=== PATIENT | female | born 1985 | race Caucasian/White ===

== ENCOUNTER → 2016-10-03 | Outpatient (CLI) | payer BC | LOC: LAB 10:15 | DX: A49.1 Streptococcal infection, unspecified site (principal) ==

== ENCOUNTER 2017-02-09 08:58 | Emergency (ER) | payer OTHER ==
[~2017-02-09] VITALS: Ht 172.7 cm; Wt 79.4 kg
[2017-02-09] MEDS ORDERED: ZITHROMAX Z PA250 MG PO (09:27)
--- NOTE | 2017-02-09 09:28 | Urgent Treatment Center Report ---
History of Present Issue Date/Time Seen by Provider 02/09/17 0917 Visit Reason Pt arrived:Walked Presenting Problem:PT C/O RASH ON THE LEFT LEG FOR THE PAST 3 DAYS Location if Accident: Onset of symptoms date/time:/ or onset unknown for:MEDICAL HX UNKNOWN Have you (or family members/close friends) recently traveled outside the [place]? N If Yes, where/when: Have you had exposure to infectious disease within the past month? TB? Other? Specify: Patient state that she started having a rash on her legs a couple of days ago that has continued to spread State that it looks like poison yani but she is not sure State that she also is having some nasal congestion and scratchy throat state that she is blowing out yellowish green ALLERGIES Coded Allergies: levofloxacin (From [facility]) (01/02/17) Home Medications Reported Medications No Known Home Medications History Medical History General CAD? No Angina: No VT: No Hypertension? No Hyperlipidemia? No CHF? No DVT? No PE? No COPD? No Asthma? No Anemia? No GERD? No Gastric ulcers? No GI Bleed? No Hernia? No Thyroid Problems? No Hypothyroidism? No CVA? No Seizures? No Diabetes? No Renal Insuffiency? No UTI? No Stones? No BPH? No GB Disease: Yes Nephritic Syndrome? No Asplenia? No Hepatitis? No Sickle Cell Disease? No Arthritis? No Migraines? No Cataracts? No Glaucoma? No MRSA? No HIV? No TB? No Anxiety? No Depression? No Cancer? No Immunization HX DT/Tetanus Unknown Flu Refused Pneumonia Never Had Surgical Hx Previous Surgery?Y REMOVAL OF COLON POLYPS T&A SEPTOPLASTY/TURB REDUCTIO REMOVAL LUMP LEFT BREAST GALLBLADDER Family History Family HX Diabetes No CAD No Hypertension No Hyperlipidemia No Cancer Yes TB No Social History Smoking Hx Smoker: Never Smoker Tobacco: No Alcohol Alcohol: No Review of Systems All Other Systems Reviewed and Negative ENT nose pain, nose discharge, nose congestion. Respiratory cough Physical Exam Vital Signs Vital Signs Date Time Temp Pulse Resp B/P Pulse O2 O2 Flow FiO2 Ox Delivery Rate 02/09 0913 97.9 97 16 120/87 98 General Appearance normal appearance, WD/WN, no apparent distress Ear, Nose, Throat sinus pain/drainage, nasal congestion Respiratory Status Yes: trachea midline, chest symmetrical, non tender chest. No: respiratory distress. 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 No Results/Orders Current Medication Orders Sig/Emy Start time Last Medication Dose Route Stop Time Status Admin Methylprednisolone 125 MG ONCE ONE 02/09 930 AC Sodium Succinate IM 02/09 931 Methylprednisolone 0 .STK-MED ONE 02/10 924 DC Sodium Succinate .ROUTE Departure Departure Time of Disposition 923 Disposition DC Home or Self Care(routine) Clinical Impression Primary Impression: Poison yani dermatitis Secondary Impressions: Upper respiratory infection Qualifiers: URI type: unspecified URI Qualified Code: J06.9 - Acute upper respiratory infection, unspecified Condition STABLE Patient Instructions DI for Nasal Congestion, DI for Poison Yani Allergy, DI for Sinusitis Additional Instructions Start antibiotic. It may take 2-3 days to notice much improvement so be sure to use conservative measures as discussed for symptoms Flonase 2 spray in each nostril daily to help with nasal congestion, sinus an ear pressure/inflammation Lots of Fluids Sleep elevated Humidifer/vaporizer Calomine lotion, hydrocortisone cream and or aveeno oatmeal baths will help to dry up rash Do not scratch Discharge Counseling Counseled pt/family regarding diagnosis, medications/RX, home care, follow up needs Prescriptions Current Visit Scripts Azithromycin (Zithromycin (Z-EUN) 250MG Tab) 250 MG PO DAILY #6 TAB TAKE TWO (2) TABLETS ON DAY 1, THEN ONE (1) TABLET DAY #2 THRU #5 at 0928
[2017-02-09 09:44] VITALS: BP 120/87
== END 2017-02-09 09:44 | disposition home or self-care (01) ==
LOC: UTC 08:58
DX: L23.7 Allergic contact dermatitis due to plants, except food (principal); Z88.1 Allergy status to other antibiotic agents; J06.9 Acute upper respiratory infection, unspecified

== ENCOUNTER 2017-03-25 14:51 | Emergency (ER) | payer OTHER ==
[~2017-03-25] VITALS: Ht 175.3 cm; Wt 81.6 kg
[~2017-03-25 14:51] MED LIST: ZITHROMAX Z PA250 MG PO
--- NOTE | 2017-03-25 15:50 | Urgent Treatment Center Report ---
History of Present Issue Date/Time Seen by Provider 03/25/17 1520 Visit Reason Pt arrived:Walked Presenting Problem:PT STATES SHE HAD A ROOT CANAL PERFORMED THIS PAST WED AND HAS BEEN HAVING PAIN AND ILLNESS SINCE. PT C/O DIZZINESS, NAUSEA, WEAKNESS, AND CHILLS Location if Accident: Onset of symptoms date/time:/ or onset unknown for:MEDICAL HX UNKNOWN Have you (or family members/close friends) recently traveled outside the [place]? N If Yes, where/when: Have you had exposure to infectious disease within the past month? TB? Other? Specify: ALLERGIES Coded Allergies: levofloxacin (From [facility]) (01/02/17) Home Medications Active Scripts Azithromycin (Zithromycin (Z-EUN) 250MG Tab) 250 MG PO DAILY #6 TAB Prov: 02/09/17 History Medical History General CAD? No Angina: No OK: No Hypertension? No Hyperlipidemia? No CHF? No DVT? No PE? No COPD? No Asthma? No Anemia? No GERD? No Gastric ulcers? No GI Bleed? No Hernia? No Thyroid Problems? No Hypothyroidism? No CVA? No Seizures? No Diabetes? No Renal Insuffiency? No UTI? No Stones? No BPH? No GB Disease: Yes Nephritic Syndrome? No Asplenia? No Hepatitis? No Sickle Cell Disease? No Arthritis? No Migraines? No Cataracts? No Glaucoma? No MRSA? No HIV? No TB? No Anxiety? No Depression? No Cancer? No More? No Immunization HX DT/Tetanus Unknown Flu Refused Pneumonia Never Had Surgical Hx Previous Surgery?Y REMOVAL OF COLON POLYPS T&A SEPTOPLASTY/TURB REDUCTIO REMOVAL LUMP LEFT BREAST GALLBLADDER Family History Family HX Diabetes No CAD No Hypertension No Hyperlipidemia No Cancer Yes TB No Social History Smoking Hx Smoker: Never Smoker Tobacco: No Alcohol Alcohol: No Review of Systems All Other Systems Reviewed and Negative ENT missing teeth. Physical Exam Vital Signs Vital Signs Date Time Temp Pulse Resp B/P Pulse O2 O2 Flow FiO2 Ox Delivery Rate 03/25 1513 98.0 75 20 126/786 98 General Appearance normal appearance (c), WD/WN, no apparent distress Ear, Nose, Throat Sinus pain, had root canal done last week afraid that infection may have spread into her sinus, currently taking Clindamycin no swelling in sinus area no hard nodules felt Respiratory Status Yes: trachea midline, chest symmetrical. No: respiratory distress. Cardiovascular normal exam, regular rate/rhythm Neurologic alert, normal exam, oriented x 3 Comments Had dental work, root canal, done last week and had to return to the dentist the day prior due to swelling and having pain in her upper lip and under her nose with swelling, dentist placed her on Clindamycin states that now she is still not feeling well, having pain, and feels like she is having sinus pressure, swelling is now gone and no redness or swelling noted in gums near or around the tooth that was worked on, no swelling in face area State that she was scared and wanted to have blood work done Medical Decision Making LABS/Meds/Orders Pt receiving controlled substance in ED? No Results/Orders Laboratory Tests 03/25/17 1540: WBC 5.1, RBC 4.12 L, Hgb 11.9 L, Hct 36.8 L, MCV 89.3, RDW 12.8, Plt Count 266, MPV 9.6, Gran % 51.9, Gran # 2.7, Lymphocytes % 37.0, Monocytes % 6.4, Eosinophils % 3.6, Basophils % 1.1, Lymphocytes # 1.9, Monocytes # 0.3, Eosinophils # 0.2, Basophils # 0.1, PUBS MCHC 32.3, MCH 28.9 Orders Procedure Date/time Status CBC WITH AUTO DIFF 03/25 1506 Complete Departure Departure Time of Disposition 1606 Disposition DC Home or Self Care(routine) Clinical Impression Primary Impression: Allergic rhinitis Qualifiers: Chronicity: unspecified Allergic rhinitis trigger: unspecified Allergic rhinitis seasonality: unspecified seasonality Qualified Code: J30.9 - Allergic rhinitis, unspecified Condition STABLE Referrals Dentist Patient Instructions Allergic Rhinitis, DI for Allergic Rhinitis, DI for Dental Pain Additional Instructions Take medication as prescribed Follow up with dentist in the morning Watch for fever or signs of worsening infection Return if needed Discharge Counseling Counseled pt/family regarding diagnosis, test results, medications/RX, home care, follow up needs Prescriptions Current Visit Scripts Azelastine Hcl (Azelastine Nasal [place]) 1 SPR NA BID #1 SPR Ref 1 at 1613
[2017-03-25 15:51] LABS: HEMOGLOBIN 11.9 g/dL (12.2-16.2); LYMPH # 1.9 K/mm3 (0.7-4.5)
[2017-03-25] MEDS ORDERED: AZELASTINE137 MCG/SP (16:11)
[2017-03-25 16:15] VITALS: BP 126/786
--- OUTSIDE RECORDS SUMMARY | 2017-03-30 20:13 | External Medical Summary Rpt | CCD ---
Author Author , GONZALO Organization GONZALO Address Unknown Phone [email or web address] Care Team Providers Care Spa Technician Name Role Phone ARABI, ZIAD, ARABI, Unavailable Unavailable [facility], Unavailable [facility]available [facility], Unavailable Unavailable [facility] REBOLLEDO, DEEPA G, Unavailable Unavailable REBOLLEDO, DEEPA G DAVID, MARYJANE W, DAVID, Unavailable Unavailable MARYJANE W [facility], Unavailable [facility]available [facility] CHARBEL WYATT, Unavailable Unavailable CHARBEL WYATT DENNIS H, Unavailable Unavailable DOC AGUIRRE STEVEN M, Unavailable Unavailable HANS DESAI [facility] H[facility], Unavailable Unavailable [facility] H[facility] Unavailable Unavailable [facility] Unavailable Unavailable HOLD[facility], [facility], Unavailable Unavailable [facility], Unavailable Unavailable [facility] VIRGINIA MOISE, Unavailable Unavailable VIRGINIA MOISE, Unavailable Unavailable CATALINA ARNOLD ALYX, Unavailable Unavailable THOMAS KAPOOR, Unavailable Unavailable THOMAS ARNOLD TOM O, Unavailable Unavailable MARKUS MCRAE [facility] Unavailable Unavailable [facility]Y [facility] Unavailable Unavailable LAB, [facility]OLOGY [facility] CYT[facility]Y [facility], Unavailable Unavailable [facility]3 [facility] Unavailable Unavailable [facility] Unavailable Unavailable [facility] NAKUL, PIERO, NAKUL, Unavailable Unavailable [facility], Unavailable [facility] PAWEL GEORGE, Unavailable Unavailable PAWEL GEORGE BRANDON L, Unavailable Unavailable RICARDO ROBLEDO GRADY J, Unavailable Unavailable NICANOR FRASER CHAD C, Unavailable Unavailable LESLYE MURDOCK JOHN M, Unavailable Unavailable [facility], [facility] Unavailable Unavailable [facility] Purpose Continuity of Care Document - 05-08-2008 through 2016 Problems Code Diagnosis DOS Provider Status V2542 SURVEILLANC 02-09-2010 CATALINA Hayward PREV PRSC ALYX INTRAUTERN CNTRACPT DEVC V7240 02-07-2010 CATALINA EXAMINATION ALYX /TEST UNCONFIRMED V251 ENCOUNTER 01-13-2010 SUNG ARNOLD/MIQUEL THOMAS Oconnell SANCHEZ IU CONTRACEPTI VE DEVICE V242 ROUTINE 01-06-2010 PATHOLOGY & CYTOLOGY FOLLOW-UP LAB 650 NORMAL 11-23-2009 [facility] V141 PERSONAL 11-23-2009 [facility] OTHER ANTIBIOTIC AGENT V146 PERSONAL 11-23-2009 [facility]ERGY TO [place] ANALGESIC AGENT V163 FAMILY 11-23-2009 [facility] MALIGNANT CENTER NEOPLASM OF BREAST V1749 FAMILY 11-23-2009 [facility] OTHER CENTER CARDIOVASCU LAR DISEASES V180 FAMILY 11-23-2009 [facility] DIABETES [place] MELLITUS V270 OUTCOME OF 11-23-2009 [facility] DELIVERY MARKUS Ana SINGLE LIVEBORN V221 SUPERVISION 11-22-2009 CLEMENTINA, OF OTHER MARKUS Ana NORMAL 68676 THREATENED 11-14-2009 CLE[facility] PREMATURE MARKUS Ana LABOR ANTEPARTUM 37419 OTHER 11-14-2009 [facility]REAT[facility], CENTER ANTEPARTUM 09129 ABNORM 11-14-2009 [facility] RATE/RHYTHM ANTPRTM COND/COMP V143 PERSONAL 11-14-2009 [facility] C[facility] ANTI-INFECT CLAY AGT 41159 OTHER 10-26-2009 CATALINA MALAISE AND THOMAS Oconnell FATIGUE 7850 UNSPECIFIED 10-26-2009 THOMAS ARNOLD TACHYCARDIA 7242 LUMBAGO 10-07-2009 CLEMENTINA MARKUS O 7910 PROTEINURIA 10-07-2009 MARKUS MCRAE 5210 DENTAL 09-08-[address] ST[address], CARIES LESLYE C 27444 08-12-2009 NAFISA ARNOLD AFFECT MANAGEMENT MOTH ANTEPARTUM 7241 PAIN IN 07-20-2009 [facility] SPINE 7243 SCIATICA 07-20-2009 HANS DESAI 39951 SPASM OF 07-20-2009 [facility] MUSCLE [facility] 462 ACUTE 07-15-2009 [facility] PHARYNGITIS [facility] 65762 OTH CURRENT 07-15-2009 [facility] CLASSIFIABL CENTER E ELSW ANTPRTM V0179 CONTACT OR 07-09-2009 [facility] OTHER VIRAL DISEASES 2724 OTHER AND 06-14-2009 [facility] UNSPECIFIED [facility]ARE[facility] HYPERLIPIDE SAMEER 4660 ACUTE 06-14-2009 [facility] BRONCHITIS [facility] 5990 URINARY 04-30-2009 YADIRA ARNOLD THOMAS A INFECTION SITE NOT SPECIFIED V7242 03-22-2009 DHS/CO EXAMINATION HEALTH OR TEST CENTRAL POSITIVE BANK ACCT RESULT 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 40362 LUMP OR 03-12-2009 ANNA MASS IN [facility] BREAST HOSP V725 RADIOLOGICA 03-09-2009 ANNA Salazar RADIOLOGY EXAMINATION PLL NEC V5869 LONG-TERM 03-08-2009 LAB [facility] (CURRENT) AMERIC USE OF HOLDING OTHER MEDICATIONS 4779 ALLERGIC 03-05-2009 [facility] RHINITIS PRIMARY CAUSE [facility]ARE[facility] UNSPECIFIED 6235 LEUKORRHEA 02-18-2009 M[facility]AE, NOT MARKUS O SPECIFIED INFECTIVE V016 CONTACT 02-18-2009 [facility], WITH OR MARKUS O EXPOSURE TO VENEREAL DISEASES V2502 GENERAL 02-16-2009 CLEMENTINA, CNSL MARKUS O INITIATION OT CONTRACEPT MEASURES V7231 ROUTINE 12-17-2008 PATHOLOGY & GYNECOLOGIC CYTOLOGY AL LAB EXAMINATION 2113 BENIGN 11-26-2008 [facility] NEOPLASM OF [facility] COLON [place] 40105 URINARY 11-26-2008 [facility] FREQUENCY [facility] 9222 CONTUSION 11-26-2008 [facility] EMERGENCY ABDOMINAL [facility] 1274 ENTEROBIASI 11-06-2008 [facility] S PRIMARY [facility]ARE[facility] 44773 ESOPHAGEAL 11-06-2008 [facility] REFLUX [facility]ARE[facility] 3829 UNSPECIFIED 06-08-2008 [facility] OTITIS [facility] MEDIA [facility]ARE[facility] 48616 ABDOMINAL 06-08-2008 [facility] PAIN, PRIMARY EPIGASTRIC [facility]ARE[facility] 59112 ABDOMINAL 04-29-2008 [facility] PAIN, LEFT AMERIC UPPER HOLDING QUADRANT 7873 FLATULENCE 04-28-2008 [facility] ERUCTATION PRIMARY AND GAS [facility]ARE[facility] PAIN 7840 HEADACHE 04-24-2008 [facility] RADI[facility] PLL 840 SPRAINS AND 04-24-2008 ANNA STRAINS OF [facility] SHOULDER CENTER AND UPPER ARM 4619 ACUTE 02-24-2008 [facility] SINUSITIS, PRIMARY UNSPECIFIED CAREINC 05094 ATROPHIC 12-09-2007 REBOLLEDO, GASTRITIS DEEPA G WITHOUT MENTION OF HEMORRHAGE 12913 PAIN IN 11-18-2007 [facility] UNSPECIFIED Medications Na ND Rx Da Fi Fi Am Da Di Ph RX Ph St me C No te ll ll ou ys ag ar # ys at rm s nt no ma ic us Or Da si cy ia de te s n re d TE 00 04 04 2 90 15 NO 62 MC Ac RB 11 -1 -1 .0 VA 36 CL ti UT 52 3- 3- 00 38 EL ve AL 61 20 20 PH 6 LA IN 10 10 10 AR N E 1 MA RI JUNIOR CY CK LF EY AT A E 2. 5 MG TA B WY 37 09 03 [address] Ac [place] 00 -1 -2 .0 TI 54 EP ti OS 00 ZE 02 HE ve EC 45 20 20 NS NS 50 [address] TROY Pineda UG AD 20 Y .6 J MG TA BL ET 59 03 03 0 [address] Ac 76 -2 -2 .0 TI 63 RE ti 21 4 4 ZE 68 ET ve 02 20 20 NS 10 [address] GOYAL UG C 59 03 03 0 [address] Ac 76 -2 -2 .0 TI 63 RE ti 21 4 ZE 68 ET ve 02 20 20 NS 10 [address] GOYAL UG C AC 00 03 03 [address] Ac ET 40 -2 -2 .0 TI 63 RE ti AM 60 4 4- 00 ZE 69 ET ve IN 48 20 20 NS OP 41 [address] GOYAL N- UG C CO D #3 TA BL ET 59 02 02 00 40 10 CI 79 TA Ac 76 -1 -2 .0 TI 20 CK ti 21 5- 6- 00 ZE 80 ET ve 53 20 20 NS T 70 [address] RILEY UG E IN C WY 37 09 01 [address] Ac [place] 00 -1 -1 .0 TI 54 EP ti OS 00 ZE 02 HE ve EC 45 20 20 NS NS 50 [address] TROY Pineda UG AD 20 Y .6 IN J C MG TA BL ET TE 00 01 01 00 45 7 CI 78 CR Ac RC 59 -0 -1 .0 TI 78 UM ti ON 13 7- 4- 00 ZE 93 ve AZ 19 20 20 NS AA OL 68 [address] N 0. UG W 4% IN CR C EA M 59 12 01 00 21 7 CI 78 WALSH Ac 76 -2 -1 .0 TI 66 TF ti 21 8- 4- 00 ZE 62 IE ve 02 20 20 NS LD [address] BALDEMAR GRANT RA LI IN NE C WY 37 09 12 [address] Ac [place] 00 -1 -0 .0 TI 54 EP ti OS 00 7- 3- 00 ZE 02 HE ve EC 45 20 20 NS NS 50 [address] TROY GRANT AD 20 Y .6 IN J C MG TA BL ET NI 00 11 11 00 28 7 WY 56 MC Ac TR 37 -1 -1 .0 OF 43 CL ti OF 81 3 9 00 ES 18 EL ve UR 70 20 20 SI LA AN 00 09 09 ON N TO 1 AL RI IN CK PH EY MC AR A R M 10 0 MG CA P WY 68 10 11 00 12 2 CI 78 MC Ac OM 38 -2 -0 .0 TI 03 CL ti ET 20 9- 5- 00 ZE 45 EL ve WALSH 04 20 20 NS LA ZI 10 [address] MADELINE GRANT CK 25 EY IN A MG C TA BL ET PE 00 10 10 00 28 7 EC 72 TA Ac NI 78 -0 -2 .0 ON 96 CK ti CI 11 5- 2- 00 OM 67 ET ve LL 65 20 20 Y 7 T IN [address] TELMA 1 UG RL VK E CO 50 0 IN MG C TA BL ET WY 37 09 10 [address] Ac [place] 00 -1 -2 .0 TI 54 EP ti OS 00 7- 2- 00 ZE 02 HE ve EC 45 20 20 NS NS 50 [address] TROY GRANT AD 20 Y .6 IN J C MG TA BL ET WY 37 09 09 [address] Ac IL 00 -1 -2 .0 TI 54 EP ti OS 00 7- 4- 00 ZE 02 HE ve EC 45 20 20 NS NS 50 [address] TROY GRANT AD 20 Y .6 IN J C MG TA BL ET FL 00 09 09 02 2. 2 CI 77 MC Ac UC 17 -0 -2 00 TI 37 ti ON 25 3- 4- 0 ZE 14 IR ve AZ 41 20 20 NS E OL 21 [address] Hernandez UG TO 0 M MG IN O C TA BL ET WA 50 09 09 00 1. 1 TH 28 MC Ac RE 41 -0 -1 00 ER 02 ti NA 90 2- 0- 0 A 67 IR ve 42 20 20 CO 0 E SY 10 [address] 1 IN EM C TO M O FL 00 09 09 00 2. 2 CI 77 MC Ac UC 17 -0 -1 00 TI 37 ti ON 25 3- 0- 0 ZE 14 IR ve AZ 41 20 20 NS E OL 21 09 [address] 15 UG TO 0 M MG IN O C TA BL ET 00 06 06 00 1. 1 CI 76 WALSH Ac 09 -0 -1 00 TI 41 TF ti 39 1- 8- 0 ZE 51 IE ve 10 20 20 NS LD [address] MCDERMOTT UG RA LI IN [facility] 00 05 06 00 1. 1 CI 76 WALSH Ac 09 -2 -0 00 TI 33 TF ti 39 2- 4- 0 ZE 58 IE ve 10 20 20 NS LD [address] BALDEMAR GRANT RA LI IN [facility] W[place] 37 06 06 [address] Ac [place] 00 -2 -0 .0 TI 53 EP ti OS 00 6- 4- 00 ZE 57 HE ve EC 45 20 20 NS NS [address] GR C UG AD 20 Y .6 IN [facility] MG TA BL ET LO 60 09 05 03 30 30 CI 73 WALSH Ac RA 50 -0 -0 .0 TI 32 TF ti TA 50 8- 7- 00 ZE 00 IE ve DI 14 20 20 NS LD NE [address] MCDERMOTT 10 UG RA LI MG IN [facility] TA BL ET FL 00 04 04 00 2. 3 CI 75 MC UC 17 -1 -2 00 TI 86 ti ON 25 0- 3- 0 ZE 52 IR ve AZ 41 20 20 NS E OL 21 [address] 15 UG TO 0 M MG IN O C TA BL ET AM 00 04 04 00 30 10 PH 34 SM Ac OX 78 -1 -2 .0 AR 45 AL ti IC 12 0- 3- 00 MA 13 LW ve IL 61 20 20 CY OO LI 30 09 09 D N 5 OU BR 50 TL AN 0 ET DO MG N #3 L CA PS UL E LO 60 09 04 02 30 30 CI 73 WALSH Ac RA 50 -0 -0 .0 TI 32 TF ti TA 50 8- 9- 00 ZE 00 IE ve DI 14 20 20 NS LD NE [address] MCDERMOTT 10 UG RA LI MG IN NE C TA BL ET 00 12 01 00 28 7 CI 74 WALSH Ac 02 -2 -0 .0 TI 57 TF ti 96 2- 1- 00 ZE 97 IE ve 09 20 20 NS LD [address] MCDERMOTT UG RA LI IN NE C FL 00 12 01 00 2. 2 CI 74 WALSH Ac UC 17 -2 -0 00 TI 57 TF ti ON 25 2- 1- 0 ZE 98 IE ve AZ 41 20 20 NS LD OL [address] MCDERMOTT 15 UG RA 0 LI MG IN NE C TA BL ET NE 00 12 01 00 30 30 CI 74 WALSH Ac XI 18 -2 -0 .0 TI 57 TF ti UM 65 2- 1- 00 ZE 96 IE ve 04 [address] MCDERMOTT 40 UG RA LI MG IN NE C CA PS UL E ME 16 11 11 00 12 30 CI 74 WALSH Ac TO 71 -1 -2 0. TI 12 TF ti CL 40 1- 0- 00 ZE 17 IE ve OP 06 20 20 0 NS LD RA 20 [address] BALDEMAR SANON UG RA LI 10 IN NE C MG TA BL ET YA 50 11 11 00 28 28 CI 74 MC Ac Z 41 -0 -2 .0 TI 01 ti 28 90 3- 0- 00 ZE 76 IR ve 40 20 20 NS E TA 50 08 08 JR BL 3 ET UG TO M IN O C LO 60 09 10 01 30 30 CI 73 No Ac RA 50 -0 -2 .0 TI 32 t ti TA 50 8- 3- 00 ZE 00 Av ve DI 14 20 20 NS ai NE [address] mead 10 UG e MG IN C TA BL ET WY 37 06 10 01 28 28 CI 72 No Ac IL 00 -2 -2 .0 TI 53 t ti OS 00 6- 3- 00 ZE 57 Av ve EC 45 20 20 NS ai 50 [address] mead C UG e 20 .6 IN C MG TA BL ET FL 60 09 09 00 16 16 CI 73 No Ac UT 50 -0 -2 .0 TI 32 t ti IC 50 8- 6- 00 ZE 03 Av ve 82 20 20 NS ai ON 90 [address] [place] UG e OP IN 50 C MC G SP RA Y FL 00 09 09 00 2. 2 CI 73 No Ac UC 17 -1 -2 00 TI 37 t ti ON 25 1- 6- 0 ZE 96 Av ve AZ 41 20 20 NS ai OL 21 [address] bl 15 UG e 0 MG IN C TA BL ET LO 60 09 09 00 30 30 CI 73 No Ac RA 50 -0 -2 .0 TI 32 t ti TA 50 8- 6- 00 ZE 00 Av ve DI 14 20 20 NS ai NE [address] bl 10 UG e MG IN C TA BL ET 00 09 09 00 90 5 CI 73 No Ac 18 -0 -2 .0 TI 32 t ti 57 8- 6- 00 ZE 04 Av ve 32 20 20 NS ai 23 [address] bl UG e IN C 00 09 09 00 28 7 CI 73 No Ac 02 -0 -2 .0 TI 31 t ti 96 8- 6- 00 ZE 99 Av ve 09 20 20 NS ai [address] bl UG e IN C FL 00 08 08 00 1. 2 CI 72 No Ac UC 17 -0 -1 00 TI 99 t ti ON 25 8- 4- 0 ZE 10 Av ve AZ 41 20 20 NS ai OL 21 [address] bl 15 UG e 0 MG IN C TA BL ET WY 37 06 07 00 28 28 CI 72 No Ac IL 00 -2 -0 .0 TI 53 t ti OS 00 6- 3- 00 ZE 57 Av ve EC 45 20 20 NS ai 50 [address] bl C UG e 20 .6 IN C MG TA BL ET Vital Signs 07-19-2016 14:39 Name Value Interpretat Reference Comment ion Range Glucose 77 mg/dL 70-100 Bld-[facility] Results Labs Lab Lab Date Result Refere Interp Status Commen Order Detail nces retati t Range on Urinalysis macro (dipstick) panel in Urine (01-02-2017 10:31) Appeara Clear CLEAR complet nce of 017 ed Urine 10:31 Bilirub NEGATIV NEG complet in 017 E ed [Presen 10:31 ce] in Urine by Test strip Erythro NEGATIV NEG complet cytes 017 E ed [Presen 10:31 ce] in Urine Color YELLOW YELLOW complet of 017 ed Urine 10:31 Ketones NEGATIV NEG complet 017 E ed [Presen 10:31 ce] in Urine by Automat ed test strip Leukocy NEGATIV NEG complet te 017 E ed esteras 10:31 e [Presen ce] in Urine by Automat ed test strip Nitrite NEGATIV NEG complet 017 E ed [Presen 10:31 ce] in Urine by Test strip Urobili 0.2 NEG complet nogen 017 ed [Presen 10:31 ce] in Urine by Test strip Progest SerPl-mCnc (07-19-2016 14:39) Progest 0.63 complet 017 ng/mL ed SerPl-m 14:39 Cnc LH SerPl-aCnc (07-19-2016 14:39) LH 31.60 complet SerPl-a 017 mIU/mL ed Cnc 14:39 FSH SerPl-aCnc (07-19-2016 14:39) FSH 7.50 complet SerPl-a 017 mIU/mL ed Cnc 14:39 B-HCG SerPl-aCnc (07-19-2016 14:39) HGC < 5.00 complet Intact+ 017 mIU/mL ed B 14:39 SerPl-a Cnc Prolactin SerPl-mCnc (07-19-2016 14:39) Prolact 11.90 complet in 017 ng/mL ed SerPl-m 14:39 Cnc TSH SerPl (07-19-2016 14:39) TSH 2.922 0.350-5 complet SerPl 017 mIU/mL .350 ed DL<=0.0 14:39 5 mIU/L-a Cnc Testost SerPl-mCnc (07-19-2016 14:39) Testost 37.31 10.00-1 complet 017 ng/dL 500.00 ed SerPl-m 14:39 Cnc Procedures Procedure DOS Code Location Performer Comment GONADOTRO 26367 [facility] CHORIONIC QUANTITAT CLAY URINE 19696 CATALINA ARNOLD 0 ALYX ALYX TEST VISUAL COLOR CMPRSN METHS LEVONORGE J7302 CATALINA ARNOLD STREL-RLS 0 THOMAS RICK A E INTRAUTER N CNTRACPT 52 MG INSERTION 82851 CATALINA ARNOLD 0 , THOMAS ORTIZ INTRAUTER INE DEVICE IUD CYTP C/V 02375 PATHOLOGY PATHOLOGY AUTO THIN 0 & & LYR CYTOLOGY CYTOLOGY PREPJ SCR LAB LAB MNL RESCR PHYS NEURAXIAL 45764 ANNA FRANKLIN LABOR 0 [facility] ANALG/ANE CENTER S PLND INC VAGINAL DELIVERY VAGINAL 54911 CLEMENTINA MCRAE, DELIVERY 0 MARKUS O MARKUS O ONLY W/POSTPAR MAXX CARE OTHER 7309 ANNA CASTILLO ARTIFICIA [address] [place] [address] L RUPTURE [facility] EPISIOTOM 736 ANNA CASTILLO Y [address] [place] [address] OBSERVATI 12211 CLEMENTINA MCRAE ON CARE 0 MARKUS O MARKUS O DISCHARGE [facility] G0378 ANNA CASTILLO OBSERV[address] ON [facility] SERV[place] H[place] PREG 73418 ANNA CASTILLO UTERUS MEDICAL MEDICAL AFTER [address] [facility] TRIMEST / GESTATION INITIAL 36872 CLEMENTINA MCRAE OBSERVRAFIA 0 MARKUS O MARKUS O ON CARE/DAY 50 MINUTES BLOOD 69880 [facility] COUNT 0 [facility] HEMOGLOBI N CUL 13094 [facility] PRSMPTV 0 [facility] PTHGNC ORGANISM SCRN W/COLONY ESTIMJ THERAPEUT 98204 ANNA CASTILLO IC [address] [place] [address] [facility] TIC/DX INJECTION SUBQ/IM URNLS DIP 64229 ANNA CASTILLO [address] [place] [address] STICK/TAB [facility] LET [place]AG[place] F[place] 31750 ANNA CASTILLO FIBRONECT [address] [place] [address] [facility] CERVICOVA G SECRETION S SEMI-HARDIK INJECTION J3105 ANNA CASTILLO [address] [place] [address] [facility] NE [place]ULFATE [place] 1 [place] [address] MCRAE, MCRAE, NONSTRESS 0 MARKUS O MARKUS O TEST BLOOD 73020 [facility] COUNT 0 [facility] HEMOGLOBI N ORTHOPANT 60322 [facility], OGRAM 0 LESLYE C LESLYE C BLOOD 39578 [facility] COUNT 0 [facility] HEMOGLOBI N GLUCOSE 21641 [facility] POST 0 [facility] GLUCOSE DOSE CHIROPRAC 36453 LLOYD DESAI, TIC 0 [facility] MANIPULAT CLAY TX SPINAL 3-4 REGIONS APPL 15665 [facility] DESAI, MODALITY 0 [facility] 1/> AREAS ELEC STIMJ UNATTENDE D APPLICATI 64335 [facility] DESAI, ON 0 [facility] MODALITY 1/> AREAS HOT/COLD PACKS APPL 73246 [facility] DESAI, MODALITY 0 [facility] 1/> AREAS ULTRASOUN D EA 15 MIN APPLICATI 17172 LLO[facility]D DESAI, ON 0 [facility] MODALITY 1/> AREAS HOT/COLD PACKS APPL 28272 LLOYD DESAI, MODALITY 0 [facility] 1/> AREAS ELEC STIMJ UNATTENDE D APPL 83524 LLO[facility]D DESAI, MODALITY 0 [facility] 1/> AREAS ULTRASOUN D EA 15 MIN THERAPEUT 42997 LLO[facility]D DESAI, IC PX 1/> 0 [facility] AREAS EACH 15 MIN EXERCISES COLLECTIO 57048 ANNA CASTILLO N VENOUS 0 [facility] BLOOD [place] [address] ANNA CASTILLO STREPTOCO [address] [place] [address] CCUS CENTER CENTER GROUP A HETEROPHI 20861 ANNA CASTILLO LE [address] [place] [address] ANTIBODIE [facility] S SCREEN CULTURE 87517 [facility] TYPING 0 [facility] IMMUNOFLU [place] [address] [facility] NON-IMMUN 0 [facility] OLOGIC OTH/THN CYTOPATHI C SERVICES 66794 CATALINA ARNOLD PROVIDED 0 , THOMAS ORTIZ OFFICE OTH/THN [place]ED [place] PREG 08814 CATALINA ARNOLD UTERUS 0 , THOMAS ORTIZ W/DETAIL DEB 1ST [place] PREG 64572 MCRAE, MCRAE, UTERUS 9 MARKUS O MARKUS O REAL TIME W/IMAGE DCMTN TRANSVAG URNLS DIP 15532 CATALINA ARNOLD 9 , THOMAS ORTIZ STICK/TAB LET RGNT NON-AUTO W/O MICRSCP CUL BACT 17596 [facility] AEROBIC 9 [facility] ADDL METHS DEFINITIV E EA ISOL CULTURE 14691 [facility] BCT 9 [facility] ISOL&PRSM PTV ID ISOLATE EA URINE SUSCEPTIB 39908 [facility] LTY STDY 9 [facility] ANTIMICRB IAL MICRO/AGA R DILUTJ CULTURE 74617 [facility] BACTERIAL 9 [facility] QUANTTATI VE COLONY COUNT URINE URINE 77076 DHS/CO PIKE 9 [facility] ACCT [place] [address] DEEPA REBOLLEDO, SURG 9 REBOLLEDO MD DEEPA [facility] PATHOLOGY PSC GROSS&PETER ROSCOPIC EXAM EXC 49108 FRASER, FRASER, CYST/ABER 9 NICANOR J NICANOR Loya RANT BREAST TISSUE OPEN 1/> LESION INJECTION J3010 ANNA CASTILLO FENTANYL 9 [facility] CITRATE [facility] 0.1 MG ANES 11490 DONOVAN BAEZ 9 PAWEL SPENCER [facility]T HOSP TRUNK & PERINEUM NOS COLLECTIO 59167 ANNA CASTILLO N VENOUS 9 [facility] BLOOD [facility] VENIPUNCT URE GONADOTRO 12502 ANNA CASTILLO PIN 9 [facility] CENTER QUANTITAT CLAY US BREAST 11508 ANNA MOISE REAL 9 [place] [facility] RADIOLOGY W/IMAGE PLLC DOCUMENTA TION COLLECTIO 55961 [facility] N VENOUS 9 PRIMARY HENRI BLOOD CAREINC VENIPUNCT URE COMPREHEN 18250 [facility] SIVE 9 [facility]IC AMERIC METABOLIC HOLDING HOLDING PANEL GONADOTRO 35217 [facility] PIN 9 AMERIC AMERIC CHORIONIC HOLDING HOLDING QUALITATI VE BLOOD 91844 [facility] COUNT 9 AMERIC AMERIC COMPLETE HOLDING HOLDING AUTO&AUTO DIFRNTL WBC URNLS DIP 47602 [facility] 9 PRIMARY HENRI STICK/TAB CAREINC LET RGNT AUTO W/O MICROSCOP Y IADNA 26471 [facility] CHLAMYDIA 9 [facility] TRACHOMAT IS AMPLIFIED PROBE TQ IADNA 25155 [facility] NEISSERIA 9 [place] [facility] GONORRHOE AE AMPLIFIED PROBE TQ CYTP C/V 42541 PATHOLOGY PATHOLOGY AUTO THIN 9 & & LYR CYTOLOGY CYTOLOGY PREPJ SCR LAB LAB MNL RESCR PHYS COLLECTIO 95953 [facility] N VENOUS 8 PRIMARY HENRI BLOOD CAREINC VENIPUNCT URE COMPREHEN 97230 [facility] SIVE 8 AMERIC AMERIC METABOLIC HOLDING HOLDING PANEL ANTIBODY 69379 [facility] HELICOBAC 8 AMERIC AMERIC [address] HOLDING HOLDING PYLORI BLOOD 87496 [facility] COUNT 8 AMERIC AMERIC COMPLETE HOLDING HOLDING AUTO&AUTO DIFRNTL WBC MRI BRAIN 84262 ANNA CASTILLO BRAIN 8 MEDICAL MEDICAL STEM W/O CENTER CENTER W/[place] [address] ANNA MOTA, HEAD/BRAI 8 PIERO N W/O RADIOLOGY CONTRAST PLLC MATERIAL URINE 78003 MCRAE, MCRAE, 8 MARKUS O MARKUS O TEST VISUAL COLOR CMPRSN METHS GONADOTRO 15455 [facility] PIN 8 [facility] CHORIONIC QUANTITAT CLAY COLLECTIO 81142 [facility] N VENOUS 8 [facility] [place] [address] REBOLLEDO, REBOLLEDO, SURG 8 DEEPA Vir[facility] PATHOLOGY GROSS&PETER ROSCOPIC EXAM SPECIAL 96715 REBOLLEDO, REBOLLEDO, STAIN 8 DEEPA Vir[facility] GROUP 1 MICROORGA NISMS I&R RHEUMATOI 13012 [facility] D FACTOR 8 [facility] [place] [address] [facility] BLOOD/URI 8 [facility] C ACID ANTINUCLE 98738 [facility] AR 8 [facility] ANTIBODIE S RAE SEDIMENTA 97636 [facility] TION RATE 8 [facility] RBC AUTOMATED CREATINE 18865 [facility] KINASE 8 [facility] TOTAL C-REACTIV 57093 [facility] E PROTEIN 8 [facility] HIGH SENSITIVI TY ANTISTREP 76612 [facility] TOLYSIN O 8 [facility] TITER IADNA 85564 [facility] NEISSERIA 8 [facility] GONORRHOE AE AMPLIFIED PROBE TQ IADNA 89590 [facility] CHLAMYDIA 8 [facility] TRACHOMAT IS AMPLIFIED PROBE TQ CYTP C/V 57767 PATHOLOGY PATHOLOGY AUTO THIN 8 & & LYR CYTOLOGY CYTOLOGY PREPJ SCR LAB LAB MNL RESCR PHYS Encounters Encounter Start End Date Code Location Performer Type Date OFFICE 63506 [facility] OUTPATIEN 0 0 ALYX ALYX T VISIT 10 MINUTES [facility] OFFICE 04176 CLEMENTINA MCRAE OUTPATIEN 0 0 [facility] T VISIT 10 MINUTES OFFICE 94901 CLEMENTINA MCRAE OUTPATIEN 0 0 [facility] T VISIT 10 MINUTES OFFICE 68312 ANNA LIPATIEN 0 0 MED[facility] V[facility] C[facility] 10 [facility]UTES [facility] [place] - 0 0 [facility] T OFFICE 24501 DAVID, DAVID, OUTPATIEN 0 0 MARYJANE WESLEY W T VISIT 10 MINUTES OFFICE 46549 DAVID, DAVID, OUTPATIEN 0 0 MARYJANE WESLEY W T VISIT 10 MINUTES OFFICE 63924 [facility]AL[facility] ARNOLD OUTPATIEN 0 0 , THOMAS A , THOMAS A T VISIT 10 MINUTES OFFICE 49303 ROYA MCRAEUIRE, OUTPATIEN 0 0 [facility] T VISIT 10 MINUTES OFFICE 76120 MCRAE MCRAE, OUTPATIEN 0 0 [facility] O T VISIT 10 MINUTES OFFICE 39962 [place] [facility] 0 0 [facility] 10 [facility]UTES [facility] [place] - 0 0 [facility] T OFFICE 22681 MCRAEROYAMCRAE, OUTPATIEN 0 0 [facility] O T VISIT 10 MINUTES OFFICE 82698 DAVID, DAVID, OUTPATIEN 0 0 MARYJANE Castillo T VISIT 10 MINUTES OFFICE 78146 [place], [place], [facility] 0 0 LESLYE Pineda ION NEW/ESTAB PATIENT 40 MIN OFFICE 69888 [facility]AL[facility] ARNOLD OUTPATIEN 0 0 , THOMAS A , THOMAS A T VISIT 10 MINUTES OFFICE 58709 ROYA MCRAEUIRE, OUTPATIEN 0 0 [facility] O [facility] O T VISIT 10 MINUTES OFFICE 01961 LLOYD DESAI, OUTPATIEN 0 0 HANS Bardales T NEW 30 MINUTES [facility] [place] - 0 0 [facility] T EMERGENCY 32689 [place] 0 0 [facility] T VISIT MODERATE SEVERITY OFFICE 44742 [facility] OUTPATIEN 9 9 PRIMARY HENRI T VISIT CAREINC 15 MINUTES OFFICE 51349 DAVID HERNANDEZ, OUTPATIEN 9 9 MARYJANE Castillo T VISIT 10 MINUTES OFFICE 96913 CLEMENTINA MCRAE OUTPATIEN 9 9 [facility] O MARKUS O T VISIT 10 MINUTES OFFICE 50797 CLEMENTINA MCRAE OUTPATIEN 9 9 [facility] O MARKUS O T NEW 60 MINUTES OFFICE 42232 [facility] 9 9 [facility] 20 [facility] MINUT[facility] BANK [facility] 90306 [facility] OUTPATIEN 9 9 PRIMARY HENRI T VISIT CAREINC 15 MINUTES OFFICE 48733 EVELIO FRASER OUTPATIEN 9 9 NICANOR Shalini Loya T VISIT 10 MINUTES OFFICE 43898 CLEMENTINA MCRAE OUTPATIEN 9 9 MARKUS O MARKUS O T VISIT 10 MINUTES OFFICE 59047 CLEMENTINA MCRAE OUTPATIEN 9 9 MARKUS O MARKUS O T VISIT 10 MINUTES PERIODIC 55683 CLEMENTINA MCRAE, PREVENTIV 9 9 MARKUS O MARKUS O E MED EST PATIENT 18-39 YRS [facility] [place] [facility] 9 [facility] 50514 LARRY WYATT DEPT 9 9 EMERGENCY , [place] VISIT SERVICES F HIGH SEVERITY& ASSOCIATE THREAT S FUN EMERGENCY 07429 ANNA 9 9 [facility] T VISIT LIMITED/M INOR PROB OFFICE 57766 [facility] 9 9 PRIMARY HENRI T VISIT CAREINC 15 MINUTES EMERGENCY 51003 LARRY ROBLEDO 9 9 EMERGENCY , RICARDO DEPARTMEN SERVICES L T VISIT MODERATE ASSOCIATE SEVERITY S [facility] [place] - 9 9 [facility] EM[facility]GENCY 10649 [place] 9 9 [facility] T VISIT LOW/MODER SEVERITY OFFICE 23800 [facility] 8 8 PRIMARY HENRI T VISIT CAREINC 15 MINUTES OFFICE 43435 [facility] 8 8 PRIMARY HENRI T VISIT CAREINC 15 MINUTES [facility] [place] - 8 8 [facility] T EMERGENCY 40809 LARRY WILHELM, DEPT 8 8 EMERGENCY ZIAD VISIT SERVICES HIGH SEVERITY& ASSOCIATE THREAT S FUNCJ OFFICE 40681 [facility] 8 8 PRIMARY HENRI T VISIT CAREINC 15 MINUTES [facility] 45828 CLEMENTINA MCRAE, PREVENTIV 8 8 MARKUS O MARKUS O E MED EST PATIENT 18-39 YRS
--- OUTSIDE RECORDS SUMMARY | 2017-03-30 20:13 | External Medical Summary Rpt | CCD ---
Author Author , GONZALO Organization GONZALO Address Unknown Phone [email or web address] Care Team Providers Care Geology Instructor Name Role Phone ARABI, ZIAD, ARABI, Unavailable [...] AGUIRRE STEVEN M, Unavailable Unavailable HANS DESAI RANDOLPH HENRI, Unavailable Unavailable RANDOLPH HENRI IRVINE [facility]IMARY Unavailable Unavailable [facility] KAY[facility] Unavailable Unavailable HOLD[facility], [...] OUTLET #3, Unavailable Unavailable PHARMACY OUTLET #3 [facility] Unavailable Unavailable [facility] Unavailable Unavailable [facility] NAKUL, PIERO, NAKUL, Unavailable Unavailable PIERO [...] & CYTOLOGY FOLLOW-UP LAB 650 NORMAL 11-23-2009 [facility] INC V141 PERSONAL 11-23-2009 [facility] HISTORY [facility] ALLERGY CENTER OTHER ANTIBIOTIC AGENT V146 PERSONAL 11-23-2009 [facility] HISTORY OF MEDICAL ALLERGY TO [place] ANALGESIC AGENT V163 FAMILY 11-23-2009 [facility] HISTORY OF MEDICAL MALIGNANT CENTER NEOPLASM OF BREAST V1749 FAMILY 11-23-2009 [facility] HISTORY OF MEDICAL OTHER CENTER CARDIOVASCU LAR DISEASES V180 FAMILY 11-23-2009 [facility] HISTORY OF MEDICAL DIABETES [place] MELLITUS V270 OUTCOME OF 11-23-2009 CLEMENTINA DELIVERY MARKUS Ana SINGLE LIVEBORN V221 SUPERVISION 11-22-2009 CLEMENTINA, OF OTHER MARKUS Ana NORMAL 51526 THREATENED 11-14-2009 CLEMENTINA PREMATURE MARKUS Ana LABOR ANTEPARTUM 80682 OTHER 11-14-2009 [facility] THREATENED MEDICAL LABOR, CENTER ANTEPARTUM 29983 ABNORM 11-14-2009 [facility] RATE/RHYTHM ANTPRTM COND/COMP V143 PERSONAL 11-14-2009 [facility] MEDICAL ALLERGY OT CENTER ANTI-INFECT CLAY AGT 24653 OTHER 10-26-2009 CATALINA MALAISE AND THOMAS Oconnell FATIGUE 7850 UNSPECIFIED 10-26-2009 THOMAS ARNOLD TACHYCARDIA 7242 LUMBAGO 10-07-2009 CLEMENTINA MARKUS O 7910 PROTEINURIA 10-07-2009 MARKUS MCRAE 5210 DENTAL 09-08-[address] ST[address], CARIES LESLYE C 58035 08-12-2009 NAFISA ARNOLD AFFECT MANAGEMENT MOTH ANTEPARTUM 7241 PAIN IN 07-20-2009 [facility] THORACIC HANS Bardales SPINE 7243 SCIATICA 07-20-2009 HANS DESAI 29494 SPASM OF 07-20-2009 [place] MUSCLE HANS Bardales 462 ACUTE 07-15-2009 [facility]ARYNGITIS [facility] 22679 OTH CURRENT 07-15-2009 [facility] CLASSIFIABL CENTER E ELSW ANTPRTM V0179 CONTACT [...] 03-12-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 56763 LUMP OR 03-12-2009 ANNA MASS IN [facility] V725 RADIOLOGICA 03-09-2009 ANNA Salazar [...] CYTOLOGY AL LAB EXAMINATION 2113 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 [place] 64597 URINARY 11-26-2008 [facility] FREQUENCY [facility] 9222 CONTUSION 11-26-2008 [facility] ABDOMINAL SERVICES [facility] 1274 ENTEROBIASI 11-06-2008 [facility] S PRIMARY CAREINC 45562 ESOPHAGEAL 11-06-2008 [facility] REFLUX PRIMARY CAREINC 3829 UNSPECIFIED 06-08-2008 [facility] OTITIS PRIMARY MEDIA CAREINC 48558 ABDOMINAL 06-08-2008 [facility] PAIN, PRIMARY EPIGASTRIC CAREINC 02486 ABDOMINAL 04-29-2008 LAB KAYLA PAIN, LEFT AMERIC UPPER HOLDING QUADRANT 7873 FLATULENCE 04-28-2008 [facility] ERUCTATION PRIMARY AND GAS CAREINC PAIN 7840 HEADACHE 04-24-2008 [facility] RADIOLOGY PLL 840 SPRAINS AND 04-24-2008 ANNA STRAINS OF [facility] SH[facility]ER [facility] AND UPPER ARM 4619 ACUTE 02-24-2008 [facility] SINUSITIS, PRIMARY UNSPECIFIED CAREINC 47478 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 5 MG TA B MD 37 09 03 5 28 28 CI [...] 1 DR RILEY UG E IN C MD 37 09 01 03 28 28 CI [...] BALDEMAR GRANT RA LI IN NE C MD 37 09 12 [address] Ac [place] 00 -1 -0 .0 TI 54 EP ti OS 00 7- 3- 00 ZE 02 HE ve EC 45 20 20 NS NS 50 [address] TROY GRANT AD 20 Y .6 IN J C MG TA BL ET NI 00 11 11 00 28 7 MD 56 MC Ac TR 37 -1 -1 .0 OF 43 CL ti OF 81 3 9 00 ES 18 EL ve UR 70 20 20 SI LA AN 00 09 09 ON N TO 1 AL RI IN CK PH EY MC AR A R M 10 0 MG CA P MD 68 10 11 00 12 2 CI [...] 0 IN MG C TA BL ET MD 37 09 10 [address] Ac [place] 00 -1 -2 .0 TI 54 EP ti OS 00 7- 2- 00 ZE 02 HE ve EC 45 20 20 NS NS 50 [address] TROY GRANT AD 20 Y .6 IN J C MG TA BL ET MD 37 09 09 00 28 28 CI [...] MG IN O C TA BL ET AK 50 09 09 00 1. 1 TH [...] 9 DR MCDERMOTT UG RA LI IN [facility] 00 05 06 00 1. 1 CI 76 WALSH Ac 09 -2 -0 00 TI 33 TF ti 39 2- 4- 0 ZE 58 IE ve 10 20 20 NS LD [address] BALDEMAR GRANT RA LI IN [facility] MD 37 06 06 [address] Ac [place] 00 -2 -0 .0 TI 53 EP ti OS 00 6- 4- 00 ZE 57 HE ve EC 45 20 20 NS NS [address] GR C UG AD 20 Y .6 IN [facility] MG TA BL ET LO 60 09 05 03 30 30 CI 73 WALSH Ac RA 50 -0 -0 .0 TI 32 TF ti TA 50 8- 7- 00 ZE 00 IE ve DI 14 20 20 NS LD NE [address] MCDERMOTT 10 UG RA LI MG IN [facility] TA BL ET FL 00 04 04 [...] 0 NS LD RA [address] BALDEMAR SANON UG RA LI [...] e MG IN C TA BL ET MD 37 06 10 01 28 28 CI [...] [address] boston MD UG e OP IN 50 C MC [...] 0 MG IN C TA BL ET MD 37 06 07 00 28 28 CI [...] Comment ion Range Glucose 77 mg/dL 70-100 Bld-[facility] Results Labs Lab Lab Date Result [...] Procedure DOS Code Location Performer Comment GONADOTRO 17778 [facility] PIN 0 [facility] CHORIONIC QUANTITAT CLAY URINE 34223 CATALINA ARNOLD 0 ALYX ALYX TEST VISUAL COLOR CMPRSN METHS [place] J7302 CATALINA ARNOLD STREL-RLS 0 THOMAS RICK A E INTRAUTER N CNTRACPT 52 MG INSERTION 53654 CATALINA ARNOLD 0 , THOMAS ORTIZ INTRAUTER INE DEVICE IUD CYTP C/V 15044 PATHOLOGY PATHOLOGY AUTO THIN 0 & & LYR CYTOLOGY CYTOLOGY PREPJ SCR LAB LAB MNL RESCR PHYS NEURAXIAL 41120 ANNA FRANKLIN LABOR 0 [facility] ANALG/ANE CENTER S PLND INC VAGINAL DELIVERY VAGINAL 68732 CLEMENTINA MCRAE, DELIVERY 0 MARKUS O MARKUS O ONLY W/POSTPAR MAXX CARE OTHER 7309 ANNA CASTILLO ARTIFICIA [address] [place] [address] L RUPTURE [facility] EPISIOTOM 736 ANNA CASTILLO Y [address] [place] [address] OBSERVATI 46553 CLEMENTINA MCRAE ON CARE 0 MARKUS O MARKUS O DISCHARGE [facility] G0378 ANNA CASTILLO OBSERV[address] ON [facility] SERVICE PER HOUR [place] PREG 10269 ANNA CASTILLO UTERUS MEDICAL MEDICAL AFTER 1ST [facility] TRIMEST / GESTATION INITIAL 21482 CLEMENTINA MCRAE OBSERVRAFIA 0 MARKUS O MARKUS O ON CARE/DAY 50 MINUTES BLOOD 74672 [facility] COUNT 0 [facility] HEMOGLOBI N CUL 25337 [facility] PRSMPTV 0 [facility] PTHGNC ORGANISM SCRN W/COLONY ESTIMJ THERAPEUT 84524 ANNA CASTILLO IC [address] [place] [address] MEDICAL PROPHYLAC [facility] TIC/DX INJECTION SUBQ/IM URNLS DIP 20106 ANNA CASTILLO [address] [place] [address] STICK/TAB [facility] LET REAGENT AUTO MICROSCOP Y FTL 28031 ANNA CASTILLO FIBRONECT [address] [place] [address] MEDICAL IN [facility] CERVICOVA G SECRETION S SEMI-HARDIK INJECTION J3105 ANNA CASTILLO [address] [place] [address] TERBUTALI [facility] NE SULFATE UP TO 1 MG 72842 MCRAE, MCRAE, NONSTRESS 0 MARKUS O MARKUS O TEST BLOOD 84988 [facility] COUNT 0 [facility] HEMOGLOBI N ORTHOPANT 52587 [facility], OGRAM 0 LESLYE C LESLYE C BLOOD 58495 [facility] COUNT 0 [facility] HEMOGLOBI N GLUCOSE 95163 [facility] POST 0 [facility] GLUCOSE DOSE CHIROPRAC 82488 LLO[facility] DESAI, TIC 0 HANS [facility] MANIPULAT CLAY [place] SPINAL 3-4 REGIONS APPL 70775 L[facility] DESAI, MODALITY 0 [facility] 1/> AREAS ELEC STIMJ UNATTENDE D APPLICATI 40370 L[facility] DESAI, ON 0 [facility] MODALITY 1/> AREAS HOT/COLD PACKS APPL 72640 LLOYD DESAI, MODALITY 0 HANS Bardales 1/> AREAS ULTRASOUN D EA 15 MIN APPLICATI 09717 LLOYD DESAI, ON 0 HANS Bardales MODALITY 1/> AREAS HOT/COLD PACKS APPL 35453 LLOYD DESAI, MODALITY 0 HANS Bardales 1/> AREAS ELEC STIMJ UNATTENDE D APPL 25264 LLOYD DESAI, MODALITY 0 [facility]ales 1/> AREAS ULTRASOUN D EA 15 MIN THERAPEUT 10883 LLOYD DESAI, IC PX 1/> 0 HANS Bardales AREAS EACH 15 MIN EXERCISES COLLECTIO 89160 ANNA CASTILLO N VENOUS 0 [facility] BLOOD [place] [address] ANNA CASTILLO STREPTOCO [address] [place] [address] CCUS CENTER CENTER GROUP A HETEROPHI 37210 ANNA CASTILLO LE [address] [place] [address] ANTIBODIE [facility] S SCREEN CULTURE 95733 [facility] TYPING 0 [facility] IMMUNOFLU [place] [address] [facility] NON-IMMUN 0 [facility] OLOGIC OTH/THN CYTOPATHI C SERVICES 41044 CATALINA ARNOLD PROVIDED 0 , THOMAS ORTIZ OFFICE OTH/THN REG SCHED HOURS [place] PREG 43040 CATALINA ARNOLD UTERUS 0 , THOMAS ORTIZ W/DETAIL DEB 1ST GESTATION [place] PREG 17044 MCRAE, MCRAE, UTERUS 9 MARKUS O MARKUS O REAL TIME W/IMAGE DCMTN TRANSVAG URNLS DIP 32097 CATALINA ARNOLD 9 , THOMAS ORTIZ STICK/TAB LET RGNT NON-AUTO W/O MICRSCP CUL BACT 26813 [facility] AEROBIC 9 [facility] ADDL METHS DEFINITIV E EA ISOL CULTURE 25418 [facility] BCT 9 [facility] ISOL&PRSM PTV ID ISOLATE EA URINE SUSCEPTIB 68172 [facility] LTY STDY 9 [facility] ANTIMICRB IAL MICRO/AGA R DILUTJ CULTURE 15420 [facility] BACTERIAL 9 [facility] QUANTTATI VE COLONY COUNT URINE URINE 82701 DHS/CO PIKE 9 [facility] ACCT [place] [address] DEEPA REBOLLEDO, SURG 9 REBOLLEDO MD DEEPA Virk PATHOLOGY PSC GROSS&PETER ROSCOPIC EXAM EXC 72358 FRASER, FRASER, CYST/ABER 9 NICANOR J NICANOR Loya RANT BREAST TISSUE OPEN 1/> LESION INJECTION J3010 ANNA CASTILLO FENTANYL 9 [facility] CITRATE [facility] 0.1 MG ANES 67849 DONOVAN BAEZ 9 PAWEL SPENCER JUDAISM ES ANT HOSP TRUNK & PERINEUM NOS COLLECTIO 71906 ANNA CASTILLO N VENOUS 9 [facility] BLOOD [facility] VENIPUNCT URE GONADOTRO 76916 ANNA CASTILLO PIN 9 [facility] CENTER QUANTITAT CLAY US BREAST 27249 ANNA MOISE REAL 9 [place] TIME RADIOLOGY W/IMAGE PLLC DOCUMENTA TION COLLECTIO 79619 [facility] N VENOUS 9 PRIMARY HENRI BLOOD CAREINC VENIPUNCT URE COMPREHEN 37552 LAB [facility] LAB KAYLA SIVE 9 AMERIC AMERIC METABOLIC HOLDING HOLDING PANEL GONADOTRO 08544 LAB [facility] LAB K[facility] PIN 9 AMERIC AMERIC CHORIONIC HOLDING HOLDING QUALITATI VE BLOOD 26245 LAB [facility] LAB KAYLA COUNT 9 AMERIC AMERIC COMPLETE HOLDING HOLDING AUTO&AUTO DIFRNTL WBC URNLS DIP 51060 [facility] 9 PRIMARY HENRI STICK/TAB CAREINC LET RGNT AUTO W/O MICROSCOP Y IADNA 19870 [facility] CHLAMYDIA 9 [facility] TRACHOMAT IS AMPLIFIED PROBE TQ IADNA 00101 [facility] NEISSERIA 9 [place] [facility] [place] [facility] GONORRHOE AE AMPLIFIED PROBE TQ CYTP C/V 68690 PATHOLOGY PATHOLOGY AUTO THIN 9 & & LYR CYTOLOGY CYTOLOGY PREPJ SCR LAB LAB MNL RESCR PHYS COLLECTIO 74423 [facility] N VENOUS 8 PRIMARY HENRI BLOOD CAREINC VENIPUNCT URE COMPREHEN 26236 LAB [facility] LAB KAYLA SIVE 8 [facility] [employer] METABOLIC HOLDING HOLDING PANEL ANTIBODY 39902 [facility] LAB K[facility] HELICOBAC [address] AMER[address] HOLDING HOLDING PYLORI BLOOD 75762 [facility] LAB K[facility]LA COUNT 8 AMERIC AMERIC COMPLETE HOLDING HOLDING AUTO&AUTO DIFRNTL WBC MRI BRAIN 62343 ANNA CASTILLO BRAIN 8 MEDICAL MEDICAL STEM W/O CENTER CENTER W/[place] [address] ANNA MOTA, HEAD/BRAI 8 PIERO N W/O RADIOLOGY CONTRAST PLLC MATERIAL URINE 55782 MCRAE, MCRAE, 8 MARKUS O MARKUS O TEST VISUAL COLOR CMPRSN METHS GONADOTRO 52906 [facility] PIN 8 [facility] CHORIONIC QUANTITAT CLAY COLLECTIO 28654 [facility] N VENOUS 8 [facility] [place] [address] REBOLLEDO, REBOLLEDO, SURG 8 DEEPA Virk PATHOLOGY GROSS&PETER ROSCOPIC EXAM SPECIAL 48185 REBOLLEDO, REBOLLEDO, STAIN 8 DEEPA Virk GROUP 1 MICROORGA NISMS I&R RHEUMATOI 54729 [facility] D FACTOR 8 [facility] [place] [address] [facility] BLOOD/URI 8 [facility] C ACID ANTINUCLE 10308 [facility] AR 8 [facility] ANTIBODIE S RAE SEDIMENTA 59339 [facility] TION RATE 8 [facility] RBC AUTOMATED CREATINE 21390 [facility] KINASE 8 [facility] TOTAL C-REACTIV 95162 [facility] E PROTEIN 8 [facility] HIGH SENSITIVI TY ANTISTREP 19784 [facility] TOLYSIN O 8 [facility] TITER IADNA 47593 [facility] NEISSERIA 8 [facility] GONORRHOE AE AMPLIFIED PROBE TQ IADNA 80172 [facility] CHLAMYDIA 8 [facility] TRACHOMAT IS AMPLIFIED PROBE TQ CYTP C/V 35158 PATHOLOGY PATHOLOGY AUTO THIN 8 & & LYR CYTOLOGY CYTOLOGY PREPJ SCR LAB LAB MNL RESCR PHYS Encounters Encounter Start End Date Code Location Performer Type Date OFFICE 25579 CATALINA ARNOLD OUTPATIEN 0 0 ALYX ALYX T VISIT 10 MINUTES [facility] - 0 0 [facility]PATIENT CENTER OFFICE 61019 CLEMENTINA MCRAE OUTPATIEN 0 0 MARKUS O MARKUS O T VISIT 10 MINUTES OFFICE 09323 CLEMENTINA MCRAE OUTPATIEN 0 0 MARKUS O MARKUS O T VISIT 10 MINUTES OFFICE 77777 ANNA LIPATIEN 0 0 MEDICAL T VISIT CENTER 10 MINUTES [facility] [place] - 0 0 [facility] OUT[facility] CENTER T OFFICE 10538 DAVID, DAVID, OUTPATIEN 0 0 MARYJANE WESLEY W T VISIT 10 MINUTES OFFICE 67768 DAVID, DAVID, OUTPATIEN 0 0 MARYJANE WESLEY W T VISIT 10 MINUTES OFFICE 28934 CATALINA ARNOLD OUTPATIEN 0 0 , THOMAS A , THOMAS A T VISIT 10 MINUTES OFFICE 15844 ROYA MCRAEUIRE, OUTPATIEN 0 0 MARKUS O MARKUS O T VISIT 10 MINUTES OFFICE 81491 MCRAE MCRAE, OUTPATIEN 0 0 MARKUS O MARKUS O T VISIT 10 MINUTES OFFICE 38517 [place] OUT[facility]EN 0 0 MEDICAL T VISIT CENTER 10 MINUTES [facility] [place] - 0 0 [facility] OUT[facility] CENTER T OFFICE 38429 MCRAEROYAMCRAE, OUTPATIEN 0 0 MARKUS O MARKUS O T VISIT 10 MINUTES OFFICE 82838 DAVID, DAVID, OUTPATIEN 0 0 MARYJANE Castillo T VISIT 10 MINUTES OFFICE 66840 [place] [facility] 0 0 LESLYE Pineda ION NEW/ESTAB PATIENT 40 MIN OFFICE 02809 CATALINA ARNOLD OUTPATIEN 0 0 , THOMAS A , THOMAS A T VISIT 10 MINUTES OFFICE 17649 ROYA MCRAEUIRE, OUTPATIEN 0 0 MARKUS O MARKUS O T VISIT 10 MINUTES OFFICE 73196 LLOYD DESAI, OUTPATIEN 0 0 HANS Bardales T NEW 30 MINUTES [facility] [place] - 0 0 MEDICAL OUTPATIEN CENTER T EMERGENCY 98284 [place] 0 0 MEDICAL DEPARTMEN CENTER T VISIT MODERATE SEVERITY OFFICE 35245 [facility] OUTPATIEN 9 9 PRIMARY HENRI T VISIT CAREINC 15 MINUTES OFFICE 64683 DAVID HERNANDEZ, OUTPATIEN 9 9 MARYJANE Castillo T VISIT 10 MINUTES OFFICE 12499 CLEMENTINA MCRAE OUTPATIEN 9 9 MARKUS O MARKUS O T VISIT 10 MINUTES OFFICE 63407 CLEMENTINA MCRAE OUTPATIEN 9 9 MARKUS O MARKUS O T NEW 60 MINUTES OFFICE 83268 [facility] 9 9 [facility] 20 [facility] MINUTES BANK AC[facility] OFFICE 01349 [facility] OUTPATIEN 9 9 PRIMARY HENRI T VISIT CAREINC 15 MINUTES OFFICE 12769 EVELIO FRASER OUTPATIEN 9 9 NICANOR Shalini Loya T VISIT 10 MINUTES OFFICE 48288 CLEMENTINA MCRAE OUTPATIEN 9 9 MARKUS O MARKUS O T VISIT 10 MINUTES OFFICE 00189 CLEMENTINA MCRAE OUTPATIEN 9 9 MARKUS O MARKUS O T VISIT 10 MINUTES PERIODIC 91623 CLEMENTINA MCRAE, PREVENTIV 9 9 MARKUS O MARKUS O E MED EST PATIENT 18-39 YRS [facility] [place] - 9 9 [facility] EMERGENCY 18893 LARRY WYATT DEPT 9 9 EMERGENCY , [place] VISIT SERVICES F HIGH SEVERITY& ASSOCIATE THREAT S FUN EMERGENCY 15519 ANNA 9 9 MEDICAL [facility] T VISIT LIMITED/M INOR PROB OFFICE 74306 [facility] 9 9 PRIMARY HENRI T VISIT CAREINC 15 MINUTES EMERGENCY 38833 LARRY ROBLEDO 9 9 EMERGENCY , RICARDO DEPARTMEN SERVICES L T VISIT MODERATE ASSOCIATE SEVERITY S [facility] [place] [facility] 9 9 [facility] EMERGENCY 33425 [place] 9 9 [facility] T VISIT LOW/MODER SEVERITY OFFICE 34163 [facility] 8 8 PRIMARY HENRI T VISIT CAREINC 15 MINUTES OFFICE 19181 [facility] 8 8 PRIMARY HENRI T VISIT CAREINC 15 MINUTES [facility] [place] - 8 8 [facility] T EMERGENCY 99952 LARRY WILHELM, DEPT 8 8 EMERGENCY ZIAD VISIT SERVICES HIGH SEVERITY& ASSOCIATE THREAT S FUNCJ OFFICE 39913 [facility] 8 8 PRIMARY HENRI T VISIT CAREINC 15 MINUTES [facility] 65658 CLEMENTINA MCRAE, PREVENTIV 8 8 MARKUS O MARKUS O E MED EST PATIENT 18-39 YRS
--- OUTSIDE RECORDS SUMMARY | 2017-03-30 20:16 | External Medical Summary Rpt | CCD ---
Demographics Preferred Language Maori Marital Status Unknown Spiritism Affiliation Unknown Race Unknown Ethnic Group Unknown Author Author , GONZALO SÁNCHEZ Address Unknown Phone Immunization No patient found.
--- OUTSIDE RECORDS SUMMARY | 2017-03-30 20:16 | External Medical Summary Rpt | CCD ---
Demographics Preferred Language Belarusian Marital Status Unknown Worship Affiliation Unknown Race Unknown Ethnic Group Unknown Author Author , GONZALO SÁNCHEZ Address Unknown Phone Immunization No patient found.
--- OUTSIDE RECORDS SUMMARY | 2017-03-30 20:16 | External Medical Summary Rpt | CCD ---
Author Author , GONZALO SÁNCHEZ Address Unknown Phone [email or web address] Team Providers Care Nnps Name Role Phone ARABI, ZIAD, ARABI, Unavailable [...] AGUIRRE STEVEN M, Unavailable Unavailable HANS DESAI KITTERY HENRI, Unavailable Unavailable [facility] Un[facility] Unavailable Unavailable [facility], [...] Unavailable Unavailable PHARMACY OUTLET #3 [facility] Unavailable Unavailable [facility] Unavailable Unavailable [facility] NAKUL, PIERO, NAKUL, Unavailable Unavailable [facility], Unavailable [facility] PAWEL GEORGE, Unavailable Unavailable PAWEL GEORGE BRANDON L, Unavailable Unavailable RICARDO ROBLEDO GRADY J, Unavailable Unavailable NICANOR FRASER CHAD C, Unavailable Unavailable LESLYE MURDOCK JOHN M, Unavailable Unavailable [facility] Unavailable Unavailable [facility] Purpose Continuity of Care Document - 10-24-2007 through 2016 Problems Code Diagnosis DOS Provider Status V2542 SURVEILLANC 02-09-2010 CATALINA Hayward PREV PRSC ALYX INTRAUTERN CNTRACPT DEVC V7240 02-07-2010 CAT[facility] EXAMINATION ALYX /TEST UNCONFIRMED V251 ENCOUNTER 01-13-2010 [facility] INSERT/MIQUEL THOMAS Oconnell SANCHEZ IU CONTRACEPTI VE DEVICE V242 ROUTINE 01-06-2010 PATHOLOGY & CYTOLOGY FOLLOW-UP LAB 650 NORMAL 11-23-2009 [facility] INC V141 PERSONAL 11-23-2009 [facility] OTHER ANTIBIOTIC AGENT V146 PERSONAL 11-23-2009 [facility] ALLERGY TO CENTER ANALGESIC AGENT V163 FAMILY 11-23-2009 [facility] MALIGNANT CENTER NEOPLASM OF BREAST V1749 FAMILY 11-23-2009 [facility] OTHER CENTER CARDIOVASCU LAR DISEASES V180 FAMILY 11-23-2009 [facility] DIABETES CENTER MELLITUS V270 OUTCOME OF 11-23-2009 [facility] DELIVERY MARKUS Ana SINGLE LIVEBORN V221 SUPERVISION 11-22-2009 CLEMENTINA, OF OTHER MARKUS O NORMAL 17917 THREATENED 11-14-2009 [facility] PREMATURE MARKUS Ana LABOR ANTEPARTUM 53291 OTHER 11-14-2009 [facility]REAT[facility], CENTER ANTEPARTUM 35154 ABNORM 11-14-2009 [facility] RATE/RHYTHM ANTPRTM COND/COMP V143 PERSONAL 11-14-2009 [facility] MEDICAL ALLERGY OT CENTER ANTI-INFECT CLAY AGT 22616 OTHER 10-26-2009 CATALINA MALAISE AND THOMAS Oconnell FATIGUE 7850 UNSPECIFIED 10-26-2009 THOMAS ARNOLD TACHYCARDIA 7242 LUMBAGO 10-07-2009 CLEMENTINA MARKUS O 7910 PROTEINURIA 10-07-2009 CLEMENTINA MARKUS O 5210 DENTAL 09-08-[address], CARIES LESLYE C 10946 08-12-2009 NAFISA ARNOLD AFFECT MANAGEMENT MOTH ANTEPARTUM 7241 PAIN IN 07-20-2009 [facility]ORAC[facility] SPINE 7243 SCIATICA 07-20-2009 HANS DESAI 92817 SPASM OF 07-20-2009 [facility] MUSCLE [facility] 462 ACUTE 07-15-2009 [facility] PHARYNGITIS [facility] 24951 OTH CURRENT 07-15-2009 [facility] CLASSIFIABL CENTER E ELSW ANTPRTM V0179 CONTACT OR 07-09-2009 [facility] EXPOSURE TO [facility] OTHER VIRAL DISEASES 2724 OTHER AND 06-14-2009 [facility] UNSPECIFIED [facility] HYPERLIPIDE SAMEER 4660 ACUTE 06-14-2009 [facility] BRONCHITIS [facility] 5990 URINARY 04-30-2009 YADIRA ARNOLD THOMAS Kourtney INFECTION SITE NOT SPECIFIED V7242 03-22-2009 DHS/CO EXAMINATION HEALTH OR TEST CENTRAL POSITIVE BANK ACCT RESULT 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 65690 LUMP OR 03-12-2009 ANNA MASS IN [facility] V725 RADIOLOGICA 03-09-2009 ANNA Salazar [...] CYTOLOGY AL LAB EXAMINATION 2113 BENIGN 11-26-2008 [facility] NEOPLASM OF MEDICAL COLON [place] 89466 URINARY 11-26-2008 [facility] FREQUENCY [facility] 9222 CONTUSION 11-26-2008 [facility] EMERGENCY ABDOMINAL SERVICES [facility] 1274 ENTEROBIASI 11-06-2008 [facility] S [facility] 28404 ESOPHAGEAL 11-06-2008 [facility] REFLUX [facility] 3829 UNSPECIFIED 06-08-2008 [facility] OTITIS [facility] MEDIA [facility] 44103 ABDOMINAL 06-08-2008 [facility] PAIN, PRIMARY EPIGASTRIC [facility]ARE[facility] 60786 ABDOMINAL 04-29-2008 LAB [facility] PAIN, LEFT AMERIC UPPER HOLDING QUADRANT 7873 FLATULENCE 04-28-2008 [facility] ERUCTATION PRIMARY AND GAS [facility]ARE[facility] PAIN 7840 HEADACHE 04-24-2008 [facility] 840 SPRAINS AND 04-24-2008 ANAN [facility] SH[facility] AND UPPER ARM 4619 ACUTE 02-24-2008 [facility] SINUSITIS, PRIMARY UNSPECIFIED CAREINC 92035 ATROPHIC 12-09-2007 REBOLLEDO, GASTRITIS DEEPA G WITHOUT MENTION OF HEMORRHAGE 77905 PAIN IN 11-18-2007 [facility] OF JOINT, SITE [...] .0 VA 36 CL ti UT 52 3 3 00 38 EL ve AL 61 20 20 PH 6 LA IN 10 10 10 AR N E 1 MA RI JUNIOR CY CK LF EY AT A E 2. 5 MG TA B NE 37 09 03 5 28 28 CI [...] .0 TI 63 RE ti AM 60 4- 4- 00 ZE 69 ET ve IN 48 20 20 NS OP 41 [address] JAY JAY N- UG C CO D #3 TA BL ET 59 02 02 00 40 10 CI 79 TA Ac 76 -1 -2 .0 TI 20 CK ti 21 5 6- 00 ZE 80 ET ve 53 20 20 NS T 70 [address] RILEY UG E IN C NE 37 09 01 [address] Ac [place] 00 -1 -1 .0 TI 54 EP ti OS 00 ZE 02 HE ve EC 45 20 20 NS NS 50 [address] TROY GRANT AD 20 Y .6 IN J C MG TA BL ET TE 00 01 01 00 45 7 CI 78 CR Ac RC 59 -0 -1 .0 TI 78 UM ti ON 13 7- 4- 00 ZE 93 ve AZ 19 20 20 NS AA OL 68 [address] Clif 0. UG W 4% IN CR C EA M 59 12 01 00 21 7 CI 78 WALSH Ac 76 -2 -1 .0 TI 66 TF ti 21 8- 4- 00 ZE 62 IE ve 02 20 20 NS LD [address] BALDEMAR GRANT RA LI IN NE C NE 37 09 12 [address] Ac [place] 00 -1 -0 .0 TI 54 EP ti OS 00 7- 3- 00 ZE 02 HE ve EC 45 20 20 NS NS 50 [address] TROY GRANT AD 20 Y .6 IN J C MG TA BL ET NI 00 11 11 00 28 7 NE 56 MC Ac TR 37 -1 -1 .0 OF 43 CL ti OF 81 3- 9- 00 ES 18 EL ve UR 70 20 20 SI LA AN 00 09 09 ON N TO 1 AL RI IN CK PH EY MC AR A R M 10 0 MG CA P NE 68 10 11 00 12 2 CI 78 MC Ac OM 38 -2 -0 .0 TI 03 CL ti ET 20 9- 5- 00 ZE 45 EL ve WALSH 04 20 20 NS LA ZI 10 [address] CORREA UG CK 25 EY IN A MG C [...] 0 IN MG C TA BL ET NE 37 09 10 01 28 28 CI [...] MG IN O C TA BL ET NE 37 09 09 [address] Ac [place] 00 -1 -2 .0 TI 54 EP ti OS 00 7- 4- 00 ZE 02 HE ve EC 45 20 20 NS NS 50 [address] TROY GRANT AD 20 Y .6 IN J C MG TA BL ET FL 00 09 09 00 2. 2 CI 77 MC Ac UC 17 -0 -1 00 TI 37 ti ON 25 3- 0- 0 ZE 14 IR ve AZ 41 20 20 NS E OL [address] 15 UG TO 0 M MG IN O C TA BL ET MS 50 09 09 00 1. 1 TH 28 MC Ac RE 41 -0 -1 00 ER 02 ti NA 90 2- 0- 0 A 67 IR ve 42 20 20 CO 0 E SY 10 [address] 1 IN EM C TO M O 00 06 06 00 1. 1 CI 76 WALSH Ac 09 -0 -1 00 TI 41 TF ti 39 1- 8- 0 ZE 51 IE ve 10 20 20 NS LD [address] BALDEMAR GRANT RA LI IN [facility] 00 05 06 00 1. 1 CI 76 WALSH Ac 09 -2 -0 00 TI 33 TF ti 39 2- 4- 0 ZE 58 IE ve 10 20 20 NS LD [address] BALDEMAR GRANT RA LI IN [facility] NE 37 06 06 [address] Ac [place] 00 -2 -0 .0 TI 53 EP ti OS 00 6- 4- 00 ZE 57 HE ve EC 45 20 20 NS NS [address] TROY Pineda UG AD 20 Y .6 IN C MG TA BL ET LO 60 09 05 03 30 30 CI 73 WALSH Ac RA 50 -0 -0 .0 TI 32 TF ti TA 50 8- 7- 00 ZE 00 IE ve DI 14 20 20 NS LD NE [address] MCDERMOTT 10 UG RA LI MG IN [facility] TA BL ET FL 00 04 04 00 2. 3 CI 75 MC Ac UC 17 -1 -2 00 TI 86 ti ON 25 0- 3- 0 ZE 52 IR ve AZ 41 20 20 NS E OL 21 09 09 JR E 1 15 UG TO 0 M MG IN [...] IE ve 04 20 20 NS LD [address] MCDERMOTT 40 UG RA LI MG IN NE C CA PS UL E 00 12 01 00 28 7 CI [...] MG IN NE C TA BL ET YA 50 11 11 00 28 28 CI 74 MC Ac Z 41 -0 -2 .0 TI 01 ti 28 90 3- 0- 00 ZE 76 IR ve 40 20 20 NS E TA 50 [address] CLAUDETTE UG TO M IN O C ME 16 11 11 00 12 30 CI 74 WALSH Ac TO 71 -1 -2 0. TI 12 TF ti CL 40 1- 0- 00 ZE 17 IE ve OP 06 20 20 0 NS LD RA [address] MCDERMOTT DE UG RA LI 10 IN NE C MG TA BL ET LO 60 09 10 01 30 30 CI 73 No Ac RA 50 -0 -2 .0 TI 32 t ti TA 50 8- 3- 00 ZE 00 Av ve DI 14 20 20 NS ai NE [address] mead 10 UG e MG IN C TA BL ET NE 37 06 10 01 28 28 CI 72 No Ac IL 00 -2 -2 .0 TI 53 t ti OS 00 6- 3- 00 ZE 57 Av ve EC 45 20 20 NS ai 50 [address] mead C UG e 20 .6 IN C MG TA BL ET 00 09 09 00 28 7 CI 73 No Ac 02 -0 -2 .0 TI 31 t ti 96 8- 6- 00 ZE 99 Av ve 09 20 20 NS ai 66 [address] mead UG e IN C FL 00 09 09 00 2. 2 [...] DR bl UG e IN C FL 60 09 09 00 16 16 CI 73 No Ac UT 50 -0 -2 .0 TI 32 t ti IC 50 8- 6- 00 ZE 03 Av ve 82 20 20 NS ai ON 90 [address] bl NE UG e OP IN 50 C MC G SP RA Y FL 00 08 08 00 1. 2 CI 72 No Ac UC 17 -0 -1 00 TI 99 t ti ON 25 8- 4- 0 ZE 10 Av ve AZ 41 20 20 NS ai OL 21 [address] bl 15 UG e 0 MG IN C TA BL ET NE 37 06 07 00 28 28 CI 72 No Ac IL 00 -2 -0 .0 TI 53 t ti OS 00 6- 3- 00 ZE 57 Av ve EC 45 20 20 NS ai 50 [address] bl C UG e 20 .6 IN C MG TA BL ET Procedures Procedure DOS Code Location Performer Comment URINE 69152 CATALINA ARNOLD 0 ALYX ALYX TEST VISUAL COLOR CMPRSN METHS GONADOTRO 37442 [facility] PIN 0 [place] [facility] CHORIONIC QUANTITAT CLAY LEVONORGE J7302 CATALINA ARNOLD STREL-RLS 0 , THOMAS ORTIZ E INTRAUTER N CNTRACPT 52 MG INSERTION 05576 CATALINA ARNOLD 0 THOMAS RICK A INTRAUTER INE DEVICE IUD CYTP C/V 12511 PATHOLOGY PATHOLOGY AUTO THIN 0 & & LYR CYTOLOGY CYTOLOGY PREPJ SCR LAB LAB MNL RESCR PHYS NEURAXIAL 59338 ANNA FRANKLIN, LABOR 0 MEDICAL TRUE [facility] ANALG/ANE CENTER S PLND INC VAGINAL DELIVERY OTHER 7309 MARITASHERLY CASTILLO ARTIFICIA [address] [place] [address] L RUPTURE [facility] EPISIOTOM 736 ANNA CASTILLO Y [address] [place] [address] MEDICAL CENTER CENTER VAGINAL 70574 MCRAE, MCRAE, DELIVERY 0 MARKUS O MARKUS O ONLY W/POSTPAR MAXX CARE OBSERVATI 13127 CLE[facility] MCRAE, ON CARE 0 MARKUS O MARKUS O DISCHARGE MANAGEMEN T INITIAL 14444 MCRAECLEMENTINA FRANCO, OBSERVATI 0 MARKUS O MARKUS O ON CARE/DAY 50 MINUTES US PREG 65736 ANNA CASTILLO UTERUS 0 MEDICAL MEDICAL AFTER 1ST CENTER CENTER [facility] G0378 ANNA CASTILLO OBSERVATI MEDICAL MEDICAL ON CENTER [place] SERVICE PER HOUR BLOOD 43409 [facility] OF COUNT 0 [place] 3D HEMOGLOBI N CUL 19671 [facility] OF [facility] OF PRSMPTV 0 [email or web address] [facility] [email or web address] [facility] PTHGNC ORGANISM SCRN W/COLONY ESTIMJ INJECTION J3105 ANNA CASTILLO [address] [place] [address] [facility]ALI [facility] NE SULFATE UP TO 1 MG FTL 45479 ANNA CASTILLO FIBRONECT MEDICAL MEDICAL IN [facility] CERVICOVA G SECRETION S SEMI-HARDIK URNLS DIP 88579 ANNA CASTILLO [address] [place] [address] STICK/TAB CENTER [place] LET REAGENT AUTO MICROSCOP Y 46597 CLEMENTINA MCRAE, NONSTRESS 0 MARKUS O MARKUS O TEST THERAPEUT 68771 ANNA CASTILLO IC [address] [place] [address] MEDICAL PROPHYLAC CENTER [place] TIC/DX INJECTION SUBQ/IM BLOOD 60947 [facility] OF COUNT 0 [place] 3D HEMOGLOBI N ORTHOPANT 16249 [place], [facility], [facility] 0 LESLYE Edwin ZHUD C BLOOD 17318 [facility] OF COUNT 0 [place] 3D HEMOGLOBI N GLUCOSE 40503 [facility] OF POST 0 [place] 3D GLUCOSE DOSE APPL 59671 [facility] DESAI, MODALITY 0 HANS [facility] 1/> AREAS ELEC STIMJ UNATTENDE D APPL 01026 [facility] DESAI, MODALITY 0 HANS MAXWELL Jeffy 1/> AREAS ULTRASOUN D EA 15 MIN APPLICATI 82116 [facility] DESAI, ON 0 HANS [facility] HANS [facility] MODALITY 1/> AREAS HOT/COLD PACKS CHIROPRAC 96958 [facility] DESAI, TIC 0 HANS MAXWELL Jeffy MANIPULAT CLAY [place] SPINAL 3-4 REGIONS APPLICATI 67209 [facility] DESAI, ON 0 HANS Bardales HANS [facility]ales MODALITY 1/> AREAS HOT/COLD PACKS APPL 11916 [facility] DESAI, MODALITY 0 HANS RUIZTHOMAS [place] 1/> AREAS ELEC STIMJ UNATTENDE D APPL 35673 [facility] DESAI, MODALITY 0 HANS RUIZTHOMAS [place] 1/> AREAS ULTRASOUN D EA 15 MIN THERAPEUT 85204 [place] DESAI, IC PX 1/> 0 HANS MAXWELL Jeffy AREAS EACH 15 MIN EXERCISES HETEROPHI 25786 ANNA CASTILLO LE [address] [facility] ANTIBODIE [place] [address] ANNA CASTILLO STREPTOCO [address] [facility] CCUS CENTER CENTER GROUP A COLLECTIO 53554 [facility] N VENOUS [address] [facility] BLOOD [place] [address] LAB[facility] OF [facility] OF NON-IMMUN 0 [facility] OLOGIC OTH/THN CYTOPATHI C CULTURE 92639 [facility] OF TYPING 0 [facility] IMMUNOFLU ORESCENT EACH ANTISERUM SERVICES 05545 CATALINA ARNOLD PROVIDED 0 , THOMAS ORTIZ OFFICE OTH/THN REG SCHED HOURS US PREG 73844 CATALINA ARNOLD UTERUS 0 , THOMAS ORTIZ W/DETAIL DEB 1ST GESTATION US PREG 76701 MCRAE, MCRAE, UTERUS 9 MARKUS O MARKUS O REAL TIME W/IMAGE DCMTN TRANSVAG URNLS DIP 59879 CATALINA ARNOLD 9 , THOMAS A , THOMAS A STICK/TAB LET RGNT NON-AUTO W/O MICRSCP CULTURE 26449 [facility] OF BCT 9 [facility] ISOL&PRSM PTV ID ISOLATE EA URINE CUL BACT 61392 [facility] OF AEROBIC 9 [facility] ADDL METHS DEFINITIV E EA ISOL CULTURE 77262 [facility] OF BACTERIAL 9 [facility] QUANTTATI VE COLONY COUNT URINE SUSCEPTIB 93417 [facility] LTY STDY 9 [facility] ANTIMICRB IAL MICRO/AGA R DILUTJ URINE 02971 DHS/CO PIKE 9 [facility] ACCT ANNA COLOR CMPRSN METHS ANES 96409 DONOVAN BAEZ 9 PAWEL SPENCER WORSHIP ES ANT HOSP TRUNK & PERINEUM NOS INJECTION J3010 ANNA CASTILLO FENTANYL [address] [facility] CITRATE [facility] 0.1 [place] [address] ANNA CASTILLO SURG [address] [facility] PATHOLOGY CENTER CENTER GROSS&PETER ROSCOPIC EXAM EXC 25757 FRASER, FRASER, CYST/ABER 9 NICANOR J NICANOR J RANT BREAST TISSUE OPEN 1/> LESION COLLECTIO 73984 ANNA CASTILLO N VENOUS [address] [facility] BLOOD [place] CENTER VENIPUNCT URE GONADOTRO 26008 ANNA CASTILLO PIN [address] [facility] CHORIONIC CENTER CENTER QUANTITAT CLAY US BREAST 98807 ANNA CASTILLO REAL [address] [facility] TIME [facility] W/IMAGE DOCUMENTA TION COMPREHEN 36946 [facility] SIVE 9 [facility]IC [facility] METABOLIC HOLDING HOLDING PANEL BLOOD 23781 [facility] COUNT 9 AMERIC AMERIC COMPLETE HOLDING HOLDING AUTO&AUTO DIFRNTL WBC GONADOTRO 29078 [facility] PIN 9 AMERIC AMERIC CHORIONIC HOLDING HOLDING QUALITATI VE COLLECTIO 21436 [facility] N VENOUS 9 PRIMARY HENRI BLOOD CAREINC VENIPUNCT URE URNLS DIP 34056 [facility] 9 PRIMARY HENRI STICK/TAB CAREINC LET RGNT AUTO W/O MICROSCOP Y IADNA 61127 [facility] OF NEISSERIA 9 [facility] GONORRHOE AE AMPLIFIED PROBE TQ IADNA 24033 [facility] LAB[facility] OF CHLAMYDIA 9 [facility] TRACHOMAT IS AMPLIFIED PROBE TQ CYTP C/V 42627 PATHOLOGY PATHOLOGY AUTO THIN 9 & & LYR CYTOLOGY CYTOLOGY PREPJ SCR LAB LAB MNL RESCR PHYS ANTIBODY 50952 [facility] LAB KALYA HELICOBAC 8 AMERIC AMERIC TER HOLDING HOLDING PYLORI COMPREHEN 97806 [facility] SIVE 8 [facility] METABOLIC HOLDING HOLDING PANEL COLLECTIO 70889 [facility] N VENOUS 8 PRIMARY HENRI BLOOD CAREINC VENIPUNCT URE BLOOD 04410 [facility] K[facility] COUNT 8 AMERIC AMERIC COMPLETE HOLDING HOLDING AUTO&AUTO DIFRNTL WBC MRI BRAIN 40261 ANNA CASTILLO BRAIN 8 MEDICAL MEDICAL STEM W/O CENTER CENTER W/[place] [address] ANNA MOTA HEAD/BRAI 8 PIERO N W/O RADIOLOGY CONTRAST PLLC MATERIAL URINE 54520 MCRAE, MCRAE, 8 MARKUS O MARKUS O TEST VISUAL COLOR CMPRSN METHS COLLECTIO 99653 [facility] OF N VENOUS 8 [facility] BLOOD VENIPUNCT URE GONADOTRO 87614 [facility] OF [facility] OF PIN 8 [facility] [place] [address] REBOLLEDO, REBOLLEDO, SURG 8 DEEPA [facility] PATHOLOGY GROSS&PETER ROSCOPIC EXAM SPECIAL 25843 REBOLLEDO, REBOLLEDO, STAIN 8 DEEPA [facility] GROUP 1 MICROORGA NISMD I&R C-REACTIV 23463 [facility] OF E PROTEIN 8 [facility] HIGH SENSITIVI TY CREATINE 25242 [facility] OF KINASE 8 [facility] [place] [address] LAB[facility] OF [facility] OF BLOOD/URI 8 [facility] C ACID SEDIMENTA 97795 [facility] OF TION RATE 8 [facility] RBC AUTOMATED ANTINUCLE 23691 [facility] OF AR 8 [facility] ANTIBODIE S RAE ANTISTREP 71625 [facility] OF TOLYSIN O 8 [facility] TITER RHEUMATOI 84795 [facility] OF D FACTOR 8 [facility] QUANTITAT CLAY IADNA 46152 [facility] OF CHLAMYDIA 8 [facility] TRACHOMAT IS AMPLIFIED PROBE TQ CYTP C/V 06528 PATHOLOGY PATHOLOGY AUTO THIN 8 & & LYR CYTOLOGY CYTOLOGY PREPJ SCR LAB LAB MNL RESCR PHYS IADNA 32356 [facility] OF NEISSERIA 8 [facility] GONORRHOE AE AMPLIFIED PROBE TQ Encounters Encounter Start End Date Code Location Performer Type Date OFFICE 42102 CATALINA ARNOLD OUTPATIEN 0 0 ALYX ALYX T VISIT 10 MINUTES [facility] [place] - 0 0 MED[facility] INPATIENT CENTER OFFICE 99088 CLEMENTINA MCRAE OUTPATIEN 0 0 MARKUS O MARKUS O T VISIT 10 MINUTES OFFICE 14425 CLEMENTINA MCRAE OUTPATIEN 0 0 MARKUS O MARKUS O T VISIT 10 MINUTES [facility] [place] - 0 0 [facility]ICAL OUTPATIEN CENTER T OFFICE 05946 ANNA OUTPATIEN 0 0 MEDICAL T VISIT CENTER 10 MINUTES OFFICE 55321 DAVID, DAVID, OUTPATIEN 0 0 MARYJANE Castillo T VISIT 10 MINUTES OFFICE 85338 DAVID, DAVID, OUTPATIEN 0 0 MARYJANE Castillo T VISIT 10 MINUTES OFFICE 82160 CATALINA ARNOLD OUTPATIEN 0 0 , THOMAS A , THOMAS A T VISIT 10 MINUTES OFFICE 48715 CLEMENTINA MCRAE OUTPATIEN 0 0 MARKUS O MARKUS O T VISIT 10 MINUTES OFFICE 21915 CLEMENTINA MCRAE OUTPATIEN 0 0 MARKUS O MARKUS O T VISIT 10 MINUTES OFFICE 95854 [place] [facility] 0 0 MEDICAL T VISIT CENTER 10 MINUTES [facility] [place] - 0 0 [facility] OUTPATIEN CENTER T OFFICE 93895 CLEMENTINA MCRAE OUTPATIEN 0 0 MARKUS O MARKUS O T VISIT 10 MINUTES OFFICE 40405 DAVID HERNANDEZ OUTPATIEN 0 0 MARYJANE Castillo T VISIT 10 MINUTES OFFICE 13075 [place], [place], CONSULTAT 0 0 LESLYE Pineda ION NEW/ESTAB PATIENT 40 MIN OFFICE 32143 CATALINA ARNOLD OUTPATIEN 0 0 , THOMAS A , THOMAS A T VISIT 10 MINUTES OFFICE 16000 CLEMENTINA MCRAE OUTPATIEN 0 0 MARKUS O MARKUS O T VISIT 10 MINUTES OFFICE 94392 [facility] DEASI OUTPATIEN 0 0 HANS [facility] T NEW 30 MINUTES [facility] [place] - 0 0 MEDICAL OUTPATIEN CENTER T EMERGENCY 28263 [place] 0 0 [facility] T VISIT MODERATE SEVERITY OFFICE 26313 [facility] OUTPATIEN 9 9 PRIMARY HENRI T VISIT CAREINC 15 MINUTES OFFICE 57288 DAVID HERNANDEZ OUTPATIEN 9 9 MARYJANE Castillo T VISIT 10 MINUTES OFFICE 69313 CLEMENTINA MCRAE OUTPATIEN 9 9 MARKUS O MARKUS O T VISIT 10 MINUTES OFFICE 17271 CLEMENTINA MCRAE OUTPATITHOMAS 9 9 MARKUS O MARKUS O T NEW 60 MINUTES OFFICE 87685 [facility] 9 [facility] T NEW [facility] MINUTES BANK ACCT [facility] [place] - 9 9 MEDICAL OUTPATIEN CENTER T [facility] - 9 9 MEDICAL OUTPATIEN [facility] [place] - 9 9 MEDICAL OUTPATIEN CENTER T OFFICE 95498 [facility] 9 9 PRIMARY HENRI T VISIT CAREINC 15 MINUTES OFFICE 35530 EVELIO FRASER OUTPATITHOMAS 9 9 NICANOR Loya T VISIT 10 MINUTES OFFICE 23580 CLEMENTINA MCRAE OUTPATITHOMAS 9 9 MARKUS O MARKUS O T VISIT 10 MINUTES OFFICE 21245 CLEMENTINA MCRAE OUTPATITHOMAS 9 9 MARKUS O MARKUS O T VISIT 10 MINUTES PERIODIC 45793 CLEMENTINA MCRAE, PREVENTIV 9 9 MARKUS O MARKUS O E MED EST PATIENT 18-39 YRS EMERGENCY 13367 LARRY WYATT DEPT 9 9 EMERGENCY , CHARBEL VISIT SERVICES F HIGH SEVERITY& ASSOCIATE THREAT S FUNCJ EMERGENCY 90358 ANNA 9 9 [facility]ICAL [facility] T VISIT LIMITED/M INOR [facility] [place] - 9 9 MEDICAL OUTPATIEN [place] T OFFICE 85909 [facility] 9 9 PRIMARY HENRI T VISIT CAREINC 15 MINUTES EMERGENCY 85751 LARRY ROBLEDO 9 9 EMERGENCY , RICARDO DEPARTMEN SERVICES L T VISIT MODERATE ASSOCIATE SEVERITY S EMERGENCY 53332 [facility] 9 9 [facility] T VISIT LOW/MODER SEVERITY [facility] 98590 [facility] 8 8 PRIMARY HENRI T VISIT CAREINC 15 MINUTES OFFICE 75635 [facility] 8 8 PRIMARY HENRI T VISIT CAREINC 15 MINUTES [facility] [place] - 8 [facility] 90956 LARRY WILHELM, DEPT 8 8 EMERGENCY ZIAD VISIT SERVICES HIGH SEVERITY& ASSOCIATE THREAT S FUN OFFICE 94762 [facility] 8 8 PRIMARY HENRI T VISIT CAREINC 15 MINUTES [facility] 35451 CLEMENTINA MCRAE, PREVENTIV 8 8 MARKUS O MARKUS O E MED EST PATIENT 18-39 YRS
--- OUTSIDE RECORDS SUMMARY | 2017-03-30 20:16 | External Medical Summary Rpt | CCD ---
Author Author , GONZALO SÁNCHEZ Address Unknown Phone [email or web address] Care Team Providers Care Equipment Mechanic Specialist Name Role Phone ARABI, ZIAD, ARABI, Unavailable [...] AGUIRRE STEVEN M, Unavailable Unavailable [facility], Unavailable Unavailable [facility] Unavailable Unavailable [facility] Unavailable Unavailable HOLD[facility], LAB [...] OUTLET #3, Unavailable Unavailable PHARMACY OUTLET #3 [facility] Unavailable Unavailable [facility] Unavailable Unavailable [facility] NAKUL, PIERO, NAKUL, Unavailable Unavailable PIERO [...] & CYTOLOGY FOLLOW-UP LAB 650 NORMAL 11-23-2009 [facility] V141 PERSONAL 11-23-2009 [facility] OTHER ANTIBIOTIC AGENT V146 PERSONAL 11-23-2009 [facility] H[facility] OF [facility] ALLERGY TO CENTER ANALGESIC AGENT V163 FAMILY 11-23-2009 [facility] OF [facility]ICAL MALIGNANT CENTER NEOPLASM OF BREAST V1749 FAMILY 11-23-2009 [facility] OF MEDICAL OTHER CENTER CARDIOVASCU LAR DISEASES V180 FAMILY 11-23-2009 [facility] OF [facility]ICAL DIABETES CENTER MELLITUS V270 OUTCOME OF 11-23-2009 [facility] DELIVERY MARKUS Ana SINGLE LIVEBORN V221 SUPERVISION 11-22-2009 CLEMENTINA, OF OTHER MARKUS O NORMAL 38562 THREATENED 11-14-2009 CLE[facility] PREMATURE MARKUS Ana LABOR ANTEPARTUM 36693 OTHER 11-14-2009 [facility] THREATENED MEDICAL LABOR, CENTER ANTEPARTUM 66054 ABNORM 11-14-2009 [facility] RATE/RHYTHM ANTPRTM COND/COMP V143 PERSONAL 11-14-2009 [facility] MEDICAL ALLERGY OT CENTER ANTI-INFECT CLAY AGT 74402 OTHER 10-26-2009 CATALINA MALAISE AND THOMAS Oconnell FATIGUE 7850 UNSPECIFIED 10-26-2009 THOMAS ARNOLD TACHYCARDIA 7242 LUMBAGO 10-07-2009 CLEMENTINA MARKUS O 7910 PROTEINURIA 10-07-2009 CLEMENTINA MARKUS O 5210 DENTAL 09-08-[address] ST[address], CARIES LESLYE C 54972 08-12-2009 NAFISA ARNOLD AFFECT MANAGEMENT MOTH ANTEPARTUM 7241 PAIN IN 07-20-2009 [facility] THORACIC [facility]ANS [facility] SPINE 7243 SCIATICA 07-20-2009 HANS DESAI 34560 SPASM OF 07-20-2009 [facility] MUSCLE HANS [facility]ales 462 ACUTE 07-15-2009 [facility] PHARYNGITIS [facility] 17912 OTH CURRENT 07-15-2009 [facility] E ELSW ANTPRTM V0179 CONTACT [...] 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-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 39077 LUMP OR 03-12-2009 ANNA MASS IN [facility] V725 RADIOLOGICA 03-09-2009 ANNA Salazar [...] CYTOLOGY AL LAB EXAMINATION 2113 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 [facility] 16471 URINARY 11-26-2008 [facility] FREQUENCY [facility] 9222 CONTUSION 11-26-2008 [facility] EMERGENCY ABDOMINAL SERVICES [facility] 1274 ENTEROBIASI 11-06-2008 [facility] 27861 ESOPHAGEAL 11-06-2008 [facility] REFLUX [facility] 3829 UNSPECIFIED 06-08-2008 [facility] OTITIS [facility]IMARY MEDIA [facility] 66685 ABDOMINAL 06-08-2008 [facility] PAIN, PRIMARY EPIGASTRIC [facility] 34121 ABDOMINAL 04-29-2008 LAB K[facility] PAIN, LEFT AMERIC UPPER HOLDING QUADRANT 7873 FLATULENCE 04-28-2008 [facility] ERUCTATION PRIMARY AND GAS [facility] PAIN 7840 HEADACHE 04-24-2008 [facility] RADIOLOGY [facility] 840 SPRAINS AND 04-24-2008 ANNA STRAINS OF [facility] SHOULDER C[facility] AND UPPER ARM 4619 ACUTE 02-24-2008 [facility] SINUSITIS, PRIMARY UNSPECIFIED [facility] 66648 ATROPHIC 12-09-2007 REBOLLEDO, GASTRITIS DEEPA G WITHOUT MENTION OF HEMORRHAGE 68717 PAIN IN 11-18-2007 [facility] OF JOINT, SITE [...] A E 2. 5 MG TA B MI 37 09 03 5 28 28 CI [...] 1 DR RILEY UG E IN C MI 37 09 01 03 28 28 CI [...] BALDEMAR GRANT RA LI IN NE C MI 37 09 12 [address] Ac IL 00 -1 -0 .0 TI 54 EP ti OS 00 7- 3- 00 ZE 02 HE ve EC 45 20 20 NS NS 50 [address] TROY GRANT AD 20 Y .6 IN J C MG TA BL ET NI 00 11 11 00 28 7 MI 56 MC Ac TR 37 -1 -1 .0 OF 43 CL ti OF 81 3- 9- 00 ES 18 EL ve UR 70 20 20 SI LA AN 00 09 09 ON N TO 1 AL RI IN CK PH EY MC AR A R M 10 0 MG CA P MI 68 10 11 00 12 2 CI [...] 0 IN MG C TA BL ET MI 37 09 10 01 28 28 CI [...] MG IN O C TA BL ET MI 37 09 09 00 28 28 CI [...] MG IN O C TA BL ET IN 50 09 09 00 1. 1 TH [...] 9 DR BALDEMAR GRANT RA LI IN [facility] 00 05 06 00 1. 1 CI 76 WALSH Ac 09 -2 -0 00 TI 33 TF ti 39 2- 4- 0 ZE 58 IE ve 10 20 20 NS LD [address] BALDEMAR GRATN RA LI IN [facility] MI 37 06 06 02 28 28 CI [...] MCDERMOTT 10 UG RA LI MG IN [facility] TA BL ET FL 00 [...] 0 NS LD RA 20 [address] MCDERMOTT DE UG RA LI [...] e MG IN C TA BL ET MI 37 06 10 01 28 28 CI [...] [address] bl MI UG e OP IN 50 C MC [...] 0 MG IN C TA BL ET MI 37 06 07 00 28 28 CI 72 No Ac IL 00 -2 -0 .0 TI 53 t ti OS 00 6- 3- 00 ZE 57 Av ve EC 45 20 20 NS ai 50 [address] bl C UG e 20 .6 IN C MG TA BL ET Procedures Procedure DOS Code Location Performer Comment URINE 52104 CATALINA ARNOLD 0 ALYX ALYX TEST VISUAL COLOR CMPRSN METHS GONADOTRO 84587 [facility] PIN 0 [place] [facility] [place] [facility] CHORIONIC QUANTITAT CLAY LEVONORGE J7302 CATALINA ARNOLD STREL-RLS 0 , THOMAS ORTIZ E INTRAUTER N CNTRACPT 52 MG INSERTION 27781 CATALINA ARNOLD 0 THOMAS RICK A INTRAUTER INE DEVICE IUD CYTP C/V 03823 PATHOLOGY PATHOLOGY AUTO THIN 0 & & LYR CYTOLOGY CYTOLOGY PREPJ SCR LAB LAB MNL RESCR PHYS NEURAXIAL 71856 ANNA FRANKLIN, LABOR 0 MEDICAL TRUE [facility] ANALG/ANE CENTER S PLND INC VAGINAL DELIVERY OTHER 7309 MARITASHERLY CASTILLO ARTIFICIA [address] [place] [address] L RUPTURE [facility] EPISIOTOM 736 ANNA CASTILLO Y [address] [place] [address] MEDICAL CENTER CENTER VAGINAL 42181 MCRAE, MCRAE, DELIVERY 0 MARKUS O MARKUS O ONLY W/POSTPAR MAXX CARE OBSERVATI 15538 CLEMENTINA MCRAE, ON CARE 0 MARKUS O MARKUS O DISCHARGE MANAGEMEN T INITIAL 55243 MCRAECLEMENTINA FRANCO, OBSERVATI 0 MARKUS O MARKUS O ON CARE/DAY 50 MINUTES US PREG 84668 ANNA CASTILLO UTERUS 0 MEDICAL MEDICAL AFTER 1ST CENTER CENTER [facility] G0378 ANNA CASTILLO OBSERVATI MEDICAL MEDICAL ON CENTER [facility] SERVICE PER HOUR BLOOD 06695 [facility] COUNT 0 [facility] HEMOGLOBI N CUL 94793 [facility] PRSMPTV 0 [employer] [facility] [employer] [facility] PTHGNC ORGANISM SCRN W/COLONY ESTIMJ INJECTION J3105 ANNA CASTILLO [address] [place] [address] TERBUTALI [facility] NE SULFATE UP TO 1 MG FTL 76686 ANNA CASTILLO FIBRONECT MEDICAL MEDICAL IN [facility] CERVICOVA G SECRETION S SEMI-HARDIK URNLS DIP 00361 ANNA CASTILLO [address] [place] [address] STICK/TAB CENTER [facility] LET [place]ENT [place]CROS[place] Y 28693 CLEMENTINA MCRAE, NONSTRESS 0 MARKUS O MARKUS O TEST THERAPEUT 86290 ANNA CASTILLO IC [address] [place] [address] MEDICAL PROPHYLAC CENTER [facility] TIC/DX INJECTION SUBQ/IM BLOOD 69997 [facility] COUNT 0 [facility] HEMOGLOBI N ORTHOPANT 73410 HUMBIRD, HUMBIRD, [facility] 0 LESLYE Edwin ZHUD C BLOOD 75521 [facility] COUNT 0 [facility] HEMOGLOBI N GLUCOSE 99053 [facility] POST 0 [facility] GLUCOSE DOSE APPL 68277 LLOYD DESAI, MODALITY 0 HANS Bardales 1/> AREAS ELEC STIMJ UNATTENDE D APPL 42769 [facility] DESAI, MODALITY 0 HANS MAXWELL Jeffy 1/> AREAS ULTRASOUN D EA 15 MIN APPLICATI 58428 L[facility] DESAI, ON 0 HANS Bardales HANS Bardales MODALITY 1/> AREAS HOT/COLD PACKS CHIROPRAC 51174 [facility] DESAI, TIC 0 HANS MAXWELL eJffy MANIPULAT CLAY [place] SPINAL 3-4 REGIONS APPLICATI 56444 LLOYD DESAI, ON 0 HANS Bardales HANS Bardales MODALITY 1/> AREAS HOT/COLD PACKS APPL 89895 LLO[facility]D DESAI, MODALITY 0 HANS RUIZTHOMAS Bardales 1/> AREAS ELEC STIMJ UNATTENDE D APPL 19116 [facility] DESAI, MODALITY 0 HANS RUIZTHOMAS Bardales 1/> AREAS ULTRASOUN D EA 15 MIN THERAPEUT 13761 L[facility] DESAI, IC PX 1/> 0 HANS MAXWELL Jeffy AREAS EACH 15 MIN EXERCISES HETEROPHI 21565 ANNA CASTILLO LE 0 [facility] [place] [address] ANNA CASTILLO STREPTOCO 0 [facility] CCUS [facility] CENTER GROUP A COLLECTIO 10226 [facility] N VENOUS 0 [facility] BLOOD [facility] [place] [address] [facility] NON-IMMUN 0 [facility] OLOGIC OTH/THN CYTOPATHI C CULTURE 10856 [facility] TYPING 0 [facility] IMMUNOFLU ORESCENT EACH ANTISERUM SERVICES 15464 CATALINA ARNOLD PROVIDED 0 , THOMAS ORTIZ OFFICE OTH/THN REG SCHED HOURS US PREG 64212 CATALINA ARNOLD UTERUS 0 , THOMAS ORTIZ W/DETAIL DEB 1ST GESTATION US PREG 87166 MCRAE, MCRAE, UTERUS 9 MARKUS O MARKUS O REAL TIME W/IMAGE DCMTN TRANSVAG URNLS DIP 77224 CATALINA ARNOLD 9 , THOMAS A , THOMAS A STICK/TAB LET RGNT NON-AUTO W/O MICRSCP CULTURE 87103 [facility] BCT 9 [facility] ISOL&PRSM PTV ID ISOLATE EA URINE CUL BACT 58046 [facility] AEROBIC 9 [facility] ADDL METHS DEFINITIV E EA ISOL CULTURE 91456 [facility] BACTERIAL 9 [facility] QUANTTATI VE COLONY COUNT URINE SUSCEPTIB 83667 [facility] LTY STDY 9 [facility] ANTIMICRB IAL MICRO/AGA R DILUTJ URINE 40925 DHS/CO PIKE 9 [facility] ACCT ANNA COLOR CMPRSN METHS ANES 55779 DONOVAN BAEZ 9 PAWEL SPENCER [facility] ES ANT HOSP TRUNK & PERINEUM NOS INJECTION J3010 ANNA CASTILLO FENTANYL 9 [facility] CITRATE [facility] 0.1 [place] [address] ANNA CASTILLO SURG 9 [facility] PATHOLOGY CENTER CENTER GROSS&PETER ROSCOPIC EXAM EXC 68928 FRASER, FRASER, CYST/ABER 9 NICANOR J NICANOR J RANT BREAST TISSUE OPEN 1/> LESION COLLECTIO 45818 ANNA CASTILLO N VENOUS 9 [facility] BLOOD [facility] VENIPUNCT URE GONADOTRO 49118 ANNA CASTILLO PIN 9 [facility] CENTER QUANTITAT CLAY US BREAST 48493 ANNA CASTILLO REAL 9 [facility] TIME [facility] W/IMAGE DOCUMENTA TION COMPREHEN 88320 [facility] SIVE 9 [facility] METABOLIC HOLDING HOLDING PANEL BLOOD 43117 [facility] COUNT 9 [facility] AMER[facility] COMPLETE HOLDING HOLDING AUTO&AUTO DIFRNTL WBC GONADOTRO 07522 [facility] PIN 9 [facility] AMERIC CHORIONIC HOLDING HOLDING QUALITATI VE COLLECTIO 20192 [facility] N VENOUS 9 PRIMARY [facility] BLOOD CAREINC VENIPUNCT URE URNLS DIP 48226 [facility] 9 PRIMARY [facility] STICK/TAB CAREINC LET RGNT AUTO W/O MICROSCOP Y IADNA 36882 [facility] NEISSERIA 9 [facility] GONORRHOE AE AMPLIFIED PROBE TQ IADNA 08683 [facility] CHLAMYDIA 9 [facility] TRACHOMAT IS AMPLIFIED PROBE TQ CYTP C/V 70934 PATHOLOGY PATHOLOGY AUTO THIN 9 & & LYR CYTOLOGY CYTOLOGY PREPJ SCR LAB LAB MNL RESCR PHYS ANTIBODY 97353 [facility] HELICOBAC [address] [employer] HOLDING HOLDING PYLORI COMPREHEN 65422 [facility] LAB K[facility] SIVE 8 [facility] METABOLIC HOLDING HOLDING PANEL COLLECTIO 11796 [facility] N VENOUS 8 PRIMARY [facility]RI BLOOD CAREINC VENIPUNCT URE BLOOD 31552 [facility] LAB [facility] COUNT 8 [facility] COMPLETE HOLDING HOLDING AUTO&AUTO DIFRNTL WBC MRI BRAIN 60965 ANNA CASTILLO BRAIN 8 MEDICAL MEDICAL STEM W/O CENTER CENTER W/[place] [address] ANNA MOTA HEAD/BRAI 8 PIERO N W/O RADIOLOGY CONTRAST PLLC MATERIAL URINE 67717 MCRAE, MCRAE, 8 MARKUS O MARKUS O TEST VISUAL COLOR CMPRSN METHS COLLECTIO 37644 [facility] N VENOUS 8 [facility] BLOOD VENIPUNCT URE GONADOTRO 20033 [facility] PIN 8 [facility] [place] [address] REBOLLEDO, REBOLLEDO, SURG 8 DEEPA [facility] PATHOLOGY GROSS&PETER ROSCOPIC EXAM SPECIAL 45291 REBOLLEDO, REBOLLEDO, STAIN 8 DEEPA [facility] GROUP 1 MICROORGA NISNE I&R C-REACTIV 83936 [facility] E PROTEIN 8 [facility] HIGH SENSITIVI TY CREATINE 89675 [facility] KINASE 8 [facility] [place] [address] [facility] BLOOD/URI 8 [facility] C ACID SEDIMENTA 35591 [facility] TION RATE 8 [facility] RBC AUTOMATED ANTINUCLE 87503 [facility] AR 8 [facility] ANTIBODIE S RAE ANTISTREP 72923 [facility] TOLYSIN O 8 [facility] TITER RHEUMATOI 88288 [facility] D FACTOR 8 [facility] QUANTITAT CLAY IADNA 87458 [facility] CHLAMYDIA 8 [facility] TRACHOMAT IS AMPLIFIED PROBE TQ CYTP C/V 56148 PATHOLOGY PATHOLOGY AUTO THIN 8 & & LYR CYTOLOGY CYTOLOGY PREPJ SCR LAB LAB MNL RESCR PHYS IADNA 11613 [facility] NEISSERIA 8 [facility] GONORRHOE AE AMPLIFIED PROBE TQ Encounters Encounter Start End Date Code Location Performer Type Date OFFICE 08592 CATALINA ARNOLD OUTPATIEN 0 0 ALYX ALYX T VISIT 10 MINUTES [facility] [place] [facility] 0 [facility] INPATIENT CENTER OFFICE 07132 CLEMENTINA MCRAE OUTPATIEN 0 0 MARKUS O MARKUS O T VISIT 10 MINUTES OFFICE 73622 CLEMENTINA MCRAE OUTPATIEN 0 0 MARKUS O MARKUS O T VISIT 10 MINUTES [facility] [place] - 0 0 [facility] OUTPATIEN CENTER T OFFICE 14872 ANNA OUTPATIEN 0 0 MEDICAL T VISIT CENTER 10 MINUTES OFFICE 77349 DAVID, DAVID, OUTPATIEN 0 0 MARYJANE Castillo T VISIT 10 MINUTES OFFICE 48466 DAVID, DAVID, OUTPATIEN 0 0 MARYJANE Castillo T VISIT 10 MINUTES OFFICE 23403 CATALINA ARNOLD OUTPATIEN 0 0 , THOMAS A , THOMAS A T VISIT 10 MINUTES OFFICE 95133 CLEMENTINA MCRAE OUTPATIEN 0 0 MARKUS O MARKUS O T VISIT 10 MINUTES OFFICE 85358 CLEMENTINA MCRAE OUTPATIEN 0 0 MARKUS O MARKUS O T VISIT 10 MINUTES OFFICE 37609 [place] [facility] 0 0 MEDICAL T VISIT CENTER 10 MINUTES [facility] [place] [facility] 0 [facility] OUTPATIEN CENTER T OFFICE 30895 CLEMENTINA MCRAE OUTPATIEN 0 0 MARKUS O MARKUS O T VISIT 10 MINUTES OFFICE 06248 DAVID HERNANDEZ OUTPATIEN 0 0 MARYJANE Castillo T VISIT 10 MINUTES OFFICE 98138 HUMBIRD, HUMBIRD, CONSULTAT 0 0 LESLYE Pineda ION NEW/ESTAB PATIENT 40 MIN OFFICE 86344 CATALINA ARNOLD OUTPATIEN 0 0 , THOMAS A , THOMAS A T VISIT 10 MINUTES OFFICE 73952 CLEMENTINA MCRAE OUTPATIEN 0 0 MARKUS O MARKUS O T VISIT 10 MINUTES OFFICE 91509 [facility] DESAI OUTPATIEN 0 0 HANS Bardales T NEW 30 MINUTES [facility] [place] [facility] 0 0 [facility] OUTPATIEN CENTER T EMERGENCY 60714 [place] 0 0 [facility] T VISIT MODERATE SEVERITY OFFICE 89959 [facility] OUTPATIEN 9 9 [facility] T VISIT CAREINC 15 MINUTES OFFICE 91904 DAVID HERNANDEZ OUTPATIEN 9 9 MARYJANE Castillo T VISIT 10 MINUTES OFFICE 03722 CLEMENTINA MCRAE OUTPATIEN 9 9 MARKUS O MARKUS O T VISIT 10 MINUTES OFFICE 92889 CLEMENTINA MCRAE OUTPATITHOMAS 9 9 MARKUS O MARKUS O T NEW 60 MINUTES OFFICE 49482 DHS/CO MAR[facility] OUTROBERTS [facility] 9 [facility] NEW [facility] MIN[facility] ACCT [facility] [place] - 9 9 MEDICAL OUTPATIEN C[facility] - 9 9 [facility] OUTPATIEN [facility] [place] - 9 9 MEDICAL OUTPATIEN CENTER T OFFICE 04148 [facility] 9 9 PRIMARY [facility]RI T VISIT CAREINC 15 MINUTES OFFICE 98567 EVELIO FRASER OUTPATITHOMAS 9 9 NICANOR Loya T VISIT 10 MINUTES OFFICE 03973 CLEMENTINA MCRAE OUTPATITHOMAS 9 9 MARKUS O MARKUS O T VISIT 10 MINUTES OFFICE 48993 CLEMENTINA MCRAE OUTPATITHOMAS 9 9 MARKUS O MARKUS O T VISIT 10 MINUTES PERIODIC 19308 CLEMENTINA MCRAE, PREVENTIV 9 9 MARKUS O MARKUS O E MED EST PATIENT 18-39 YRS EMERGENCY 98996 LARRY WYATT DEPT 9 9 EMERGENCY , CHARBEL VISIT SERVICES F HIGH SEVERITY& ASSOCIATE THREAT S FUNCJ EMERGENCY 06835 ANNA 9 9 [facility] T VISIT LIMITED/M [facility] [place] - 9 9 MEDICAL OUTPATIEN [place] T OFFICE 65297 [facility] 9 9 PRIMARY [facility]RI T VISIT CAREINC 15 MINUTES EMERGENCY 92954 LARRY ROBLEDO 9 9 EMERGENCY , RICARDO DEPARTMEN SERVICES L T VISIT MODERATE ASSOCIATE SEVERITY S EMERGENCY 22955 [facility] 9 9 [facility] T VISIT LOW/MODER SEVERITY [facility] 9 [facility] T OFFICE 60327 [facility] 8 8 PRIMARY [facility]ENRI T VISIT CAREINC 15 MINUTES OFFICE 13202 [facility] 8 8 PRIMARY HENRI T VISIT CAREINC 15 [facility]ES [facility] 67793 LARRY WILHELM, DEPT 8 8 EMERGENCY ZIAD VISIT SERVICES HIGH SEVERITY& ASSOCIATE THREAT S FUN OFFICE 34870 [facility] 8 8 PRIMARY HENRI T VISIT CAREINC 15 MINUTES [facility] 57412 CLEMENTINA MCRAE, PREVENTIV 8 8 MARKUS O MARKUS O E MED EST PATIENT 18-39 YRS
--- OUTSIDE RECORDS SUMMARY | 2017-03-30 20:17 | External Medical Summary Rpt ---
Author Author VERONIKABURAK Kirby, [facility] [employer] Address Unknown Phone Unavailable Results Urinalysis macro (dipstick) panel in Urine Observa Value Referen Units Interpr Notes Date tion ce etation Range Appeara Clear CLEAR No No No Jan 02 nce of informa informa informa 2017 Urine tion in tion in tion in 10:31 source source source AM data data data Bilirub NEGATIV NEG No No No Jan 02 in E informa informa informa 2016 [Presen tion in tion in tion in 10:31 ce] in source source source AM Urine data data data by Test strip Erythro NEGATIV NEG No No No Jan 02 cytes E informa informa informa 2016 [Presen tion in tion in tion in 10:31 ce] in source source source AM Urine data data data Color YELLOW YELLOW No No No Jan 02 of informa informa informa 2017 Urine tion in tion in tion in 10:31 source source source AM data data data Glucose NEG No No No Jan 02 [Mass/vol informati informati informati 2017 ume] in on in on in on in 10:31 AM Urine by source source source Test data data data strip Ketones NEGATIV NEG mg/dL No No Jan 02 E informa informa 2016 [Presen tion in tion in 10:31 ce] in source source AM Urine data data by Automat ed test strip pH of 5.0 - 8.5 No Normal No Jan 02 Urine informati informati 2017 on in on in 10:31 AM source source data data Protein NEG mg/dL No No Jan 02 [Mass/vol informati informati 2017 ume] in on in on in 10:31 AM Urine by source source Automated data data test strip Specific 1.005 - No Normal No Jan 02 gravity 1.030 informati informati 2017 of Urine on in on in 10:31 AM source source data data Leukocy NEGATIV NEG No No No Jan 02 te E informa informa informa 2017 esteras tion in tion in tion in 10:31 e source source source AM [Presen data data data ce] in Urine by Automat ed test strip Nitrite NEGATIV NEG No No No Jan 02 E informa informa informa 2016 [Presen tion in tion in tion in 10:31 ce] in source source source AM Urine data data data by Test strip Urobili 0.2 NEG E.U./dL No No Jan 02 nogen informa informa 2016 [Presen tion in tion in 10:31 ce] in source source AM Urine data data by Test strip MRI Brain w/ + w/o Contrast Observa Value Referen Units Interpr Notes Date tion ce etation Range \.br\MR No No No No Nov 25 I SCAN informa informa informa informa 2014 OF THE tion in tion in tion in tion in 6:55 PM HEAD source source source source DONE data data data data WITH AND WITHOUT IV CONTRAS T DATED 015\.br \\.br\M RI evaluat ion of the head reveals that the intracr anial structu res are unremar kable. No abnorma l intra-a xial or extra-a xial lesions were identif ied. Ventric ular system and cistern s were within normal limits. No abnorma l signal alterat ions were noted on the T1 or T2 weighte d sequenc es.\.br \\.br\T here has been no change compare d to a previou s study of 008.\.b r\\.br\ IMPRESS ION: Normal MRI evaluat ion of the head done with and without contras t.\.br\ \.br\ END OF REPORT* *\.br\\ .br\Jody Levy M.D.\.b r\\.br\ Dictate d: 11/26/19 15 7:35 PM\.br\ \.br\Tr anscrib ed: 11/26/19 7:41 PM\.br\ \.br\ * Final Report \.br \\.br\D ictated : ANTIONE LEVY M.D. 015 7:35 pm\.br\ \.br\Tr anscrib ed by: LESLI 015 7:42 pm\.br\ \.br\Au thentic ated by: ANTIONE LEVY M.D. 015 9:38 am\.br\ \.br\ IMMUNOELECTROPHORESIS, SERUM Observa Value Referen Units Interpr Notes Date tion ce etation Range FAX 432-6009 IMMUNOE SEE No No No Immunog November 05 LECTROP BELOW informa informa informa lobulin 2014 HORESIS tion in tion in tion in G, Qn, 1:50 PM , SERUM source source source Serum data data data 1317 700-160 0 mg/dL CBImmun oglobul in A, Qn, Serum 199 91-414 mg/dL CBImmun oglobul in M, Qn, Serum 101 40-230 mg/dL CBProte in, Total, Serum 7.2 6.0-8.5 g/dL CBAlbum in 4.0 3.2-5.6 g/dL CBAlpha -1-Glob ulin 0.2 0.1-0.4 g/dL CBAlpha -2-Glob ulin 0.8 0.4-1.2 g/dL CBBeta Globuli n 0.9 0.6-1.3 g/dL CBGamma Globuli n 1.3 0.5-1.6 g/dL CBM-Spi ke Not Observe d Not Observe d g/dL CBGlobu aria, Total 3.2 2.0-4.5 g/dL CBA/G Ratio 1.3 0.7-2.0 CBImmun ofixati on Result, Serum CBAn apparen t normal immunof ixation pattern .Please note: CBProte in electro phoresi s scan will follow via compute r, mail, orcouri er deliver y. RAE Observa Value Referen Units Interpr Notes Date ti ce etation Range FAX 432-6009 Nuclear SEE No No No Antinuc November 05 Ab BELOW informa informa informa lear 2014 [Titer] tion in tion in tion in Antibod 1:50 PM in source source source ies, IF Serum data data data SEE by BELOWSe Immunof e luoresc pattern ence s CBNegat mark <1:80Bo rderlin e 1:80Pos itive >1:80 LYMES ABS TOTAL(IGG/IGM) Observa Value Referen Units Interpr Notes Date tion ce etation Range FAX 432-6009 Borreli SEE No No No Lyme November 05 a BELOW informa informa informa IgG/IgM 2015 burgdor tion in tion in tion in Ab 1:50 PM feri source source source IgG+IgM data data data Ab <0.91 [Units/ volume] 0.00-0. in 90 Serum ISR CBNegat mark <0.91Eq uivocal 0.91 - 1.09Pos itive >1.09 HEMOGLOBIN A1C Observa Value Referen Units Interpr Notes Date tion ce etation Range FAX 432-6009 Hemoglo 5.10 No % No NON November 05 bin informa informa DIABETI 2015 A1c/Hem tion in tion in C 1:50 PM oglobin source source .total data data in 3.0-6.0 Blood %CONTRO LLED DIABETI C 6.0-9.0 %POORLY CONTROL LED DIABETI C >9.0%Hg bA1c is a FDA approve d test for monitor ing director long term care glucose control in individ uals with diabete s. It is not an approve dscreen ing test for diagnos ing type 1 and type 2 diabete s.Resul ts of HgbA1c are not reliabl e in patient s with chronic blood loss, consequ ent variabl e erythro cyte lifespa n,hemol ytic disease s, pregnan cy, and signifi cant blood loss. RA LATEX-SERUM Observa Value Referen Units Interpr Notes Date tion ce etation Range FAX 432-6009 Rheumat NEGATIV NEGATIV No No No November 05 oid E E informa informa informa 2015 arthrit tion in tion in tion in 1:50 PM is source source source nuclear data data data Ab [Presen ce] in Serum CK Observa Value Referen Units Interpr Notes Date tion ce etation Range FAX 432-6009 Creatin 64 21 - U/L No No November 05 e 232 informa informa 2015 kinase tion in tion in 1:50 PM [Enzyma source source tic data data activit y/volum e] in Serum or Plasma ESR Observa Value Referen Units Interpr Notes Date tion ce etation Range FAX 432-6009 Erythro 22 0 - 20 MM/HR High No November 05 cyte informa 2015 sedimen tion in 1:50 PM tation source rate by data Westerg trey method RAE (REFLEX IF POSITIVE) Observa Value Referen Units Interpr Notes Date tion ce etation Range FAX 432-6009 RAE SEE No No No Speckle November 05 (REFLEX BELOW informa informa informa d 2014 IF tion in tion in tion in Pattern 1:45 PM POSITIV source source source E) data data data 1:640 H CBNote: CBA positiv e RAE result may occur in healthy individ uals chidi associa ellie with a variety of disease s. See interpr e-tatio n below:. Pattern Antigen Detecte d Suggest ed Disease Associa tion--- ------- - ------- ------- -- ------- ------- ------- ------- -Homoge neous DNA(ds, ss,), High titers - SLE(Smo oth) Histone ------- ---- ------- ------- -- ------- ------- ------- ------- -Speckl ed Sm, MUSEUM PREPARATOR, SCL-70, SLE,MCT D,Scler oderma, Sjogren sSS-A/S S-B---- ------- ------- ------- -- ------- ------- ------- ------- -Nucleo lar SCL-70, PM-1/SC L High titers Sclerod garrison Poly-my ositis/ Sclerod garrison Overlap ------- ---- ------- ------- -- ------- ------- ------- ------- -Centro mere Centrom ere PSS w/Crest syndrom e variabl e------ ----- ------- ------- -- ------- ------- ------- ------- --Perfo rmed at: [facility] [address], [place], [place], [id number] Adonay burgos, PhD, Phone: [phone]
--- OUTSIDE RECORDS SUMMARY | 2017-03-30 20:17 | External Medical Summary Rpt ---
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 in individ uals with diabete [...] ------- ------- ------- ------- -Speckl ed Sm, TOURIST HOME KEEPER, SCL-70, SLE,MCT D,Scler oderma, Sjogren sSS-A/S S-B---- ------- ------- ------- -- ------- ------- ------- ------- -Nucleo lar SCL-70, PM-1/SC L High titers Sclerod garrison Poly-my ositis/ Sclerod garrison Overlap ------- ---- ------- ------- -- ------- ------- ------- ------- -Centro mere Centrom ere PSS w/Crest syndrom e variabl e------ ----- ------- ------- -- ------- ------- ------- ------- --Perfo rmed at: [facility] [address], [place], [place], [id number] Adonay burgos, PhD, Phone: [phone]
== END 2017-03-25 16:15 | disposition home or self-care (01) ==
LOC: UTC 14:51
PROVIDERS: Nurse Practitioner
DX: J30.9 Allergic rhinitis, unspecified (principal); Z88.1 Allergy status to other antibiotic agents; K08.89 Other specified disorders of teeth and supporting structures

== ENCOUNTER 2017-05-18 15:40 | Emergency (ER) | payer OTHER ==
[~2017-05-18] VITALS: Ht 175.3 cm; Wt 83.5 kg
[~2017-05-18 15:40] MED LIST changes: +AZELASTINE137 MCG/SP
--- OUTSIDE RECORDS SUMMARY | 2017-05-18 15:46 | External Medical Summary Rpt | CCD ---
Author Author , GONZALO SÁNCHEZ Address Unknown Phone [email or web address]) Care Team Providers Care Special Machine Operator Name Role Phone [facility], Unavailable Unavailable [facility], Unavailable Unavailable [facility] REBOLLEDO, DEEPA G, Unavailable Unavailable REBOLLEDO, DEEPA G [facility], Unavailable Unavailable [facility] CHARBEL WYATT, Unavailable Unavailable CHARBEL WYATT DENNIS H, Unavailable Unavailable DOC AGUIRRE STEVEN M, Unavailable Unavailable [facility] Un[facility] Un[facility] Un[facility] Unavailable [facility], [facility], Unavailable Unavailable [facility] VIRGINIA OMISE, Unavailable Unavailable VIRGINIA MOISE, Unavailable Unavailable THOMAS KAPOOR, Unavailable Unavailable THOMAS ARNOLD TOM O, Unavailable Unavailable [facility] Unavailable Unavailable [facility] Unavailable Unavailable LAB, [facility], Unavailable [facility]available [facility] Unavailable Unavailable [facility] Unavailable Unavailable [facility], Unavailable Unavailable [facility] PAWEL GEORGE, Unavailable Unavailable PAWEL GEORGE CHAD C, Unavailable Unavailable LESLYE MURDOCK JOHN M, Unavailable Unavailable [facility], [facility] Unavailable Unavailable [facility] Purpose Continuity of Care Document - 11-18-2007 through 2016 Problems Code Diagnosis DOS Provider Status V2542 SURVEILLANC 02-09-2010 [facility] PREV PRSC ALYX INTRAUTERN CNTRACPT DEVC V7240 02-07-2010 [facility] EXAMINATION ALYX /TEST UNCONFIRMED V251 ENCOUNTER 01-13-2010 SUNG ARNOLD/MIQUEL THOMAS Oconnell SANCHEZ IU CONTRACEPTI VE DEVICE V242 ROUTINE 01-06-2010 PATHOLOGY & CYTOLOGY FOLLOW-UP LAB 650 NORMAL 11-23-2009 [facility] INC V141 PERSONAL 11-23-2009 [facility] OTHER ANTIBIOTIC AGENT V146 PERSONAL 11-23-2009 [facility] [place] ANALGESIC AGENT V163 FAMILY 11-23-2009 [facility] HISTORY OF MEDICAL MALIGNANT CENTER NEOPLASM OF BREAST V1749 FAMILY 11-23-2009 [facility] HISTORY OF MEDICAL OTHER CENTER CARDIOVASCU LAR DISEASES V180 FAMILY 11-23-2009 [facility] DIABET[facility] MELLITUS V270 OUTCOME OF 11-23-2009 [facility], DELIVERY MARKUS O SINGLE LIVEBORN V221 SUPERVISION 11-22-2009 [facility], OF OTHER MARKUS O NORMAL 79551 THREATENED 11-14-2009 [facility] PREMATURE MARKUS Ana LABOR ANTEPARTUM 94270 OTHER 11-14-2009 [facility], CENTER ANTEPARTUM 08085 ABNORM 11-14-2009 [facility] RATE/RHYTHM ANTPRTM COND/COMP V143 PERSONAL 11-14-2009 [facility]ENTER ANTI-INFECT CLAY AGT 18890 OTHER 10-26-2009 [facility] MALAISE AND THOMAS Oconnell FATIGUE 7850 UNSPECIFIED 10-26-2009 [facility] ARNOLD TACHYCARDIA 7242 LUMBAGO 10-07-2009 [facility] 7910 PROTEINURIA 10-07-2009 MARKUS [facility] 5210 DENTAL 09-08-[address], CARIES LESLYE C [address] 08-12-2009 NAFISA ARNOLD AFFECT MANAGEMENT MOTH ANTEPARTUM 7241 PAIN IN 07-20-2009 [facility] SPINE 7243 SCIATICA 07-20-2009 [facility] 16971 SPASM OF 07-20-2009 [facility] MUSCLE [facility] 462 ACUTE 07-15-2009 [facility] PHARYNGITIS [facility] 15252 OT CURRENT 07-15-2009 [facility] CLASSIFIABL CENTER E ELSW ANTPRTM V0179 CONTACT OR 07-09-2009 [facility] EXPOSURE TO [employer] [employer] OTHER VIRAL DISEASES 2724 OTHER AND 06-14-2009 [facility] UNSPECIFIED [facility] HYPERLIPIDE SAMEER 4660 ACUTE 06-14-2009 [facility] BRONCHITIS [facility] 5990 URINARY 04-30-2009 [facility], TRACT THOMAS A INFECTION SITE NOT SPECIFIED V7242 03-22-2009 [facility]/CO EXAMINATION HEALTH OR TEST CENTRAL POSITIVE BANK ACCT RESULT 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 76207 LUMP OR 03-12-2009 [facility] MASS IN [facility]OS[facility] V725 RADIOLOGICA 03-09-2009 [facility] RADIOLOGY EXAMINATION PLL NEC V5869 LONG-TERM 03-08-2009 LAB [facility] (CURRENT) AMERIC USE OF HOLDING OTHER MEDICATIONS 4779 ALLERGIC 03-05-2009 [facility] RHINITIS PRIMARY CAUSE [facility] UNSPECIFIED 6235 LEUKORRHEA 02-18-2009 [facility], NOT MARKUS O SPECIFIED INFECTIVE V016 CONTACT 02-18-2009 [facility], WITH OR MARKUS O EXPOSURE TO VENEREAL DISEASES V2502 GENERAL 02-16-2009 [facility] CNSL MARKUS O INITIATION OTH CONTRACEPT MEASURES V7231 ROUTINE 12-17-2008 PATHOLOGY & GYNECOLOGIC CYTOLOGY AL LAB EXAMINATION 2113 BENIGN 11-26-2008 [facility] 31140 URINARY 11-26-2008 [facility] 9222 CONTUSION 11-26-2008 [facility] EMERGENCY ABDOMINAL SERVICES [facility] 1274 ENTEROBIASI 11-06-2008 [facility] S [facility]IMARY [facility]ARE[facility] 63734 ESOPHAGEAL 11-06-2008 [facility] REFLUX [facility] 3829 UNSPECIFIED 06-08-2008 [facility] OTITIS PRIMARY MEDIA [facility] 64406 ABDOMINAL 06-08-2008 [facility] PAIN, PRIMARY EPIGASTRIC [facility] 24997 ABDOMINAL 04-29-2008 [facility] PAIN, LEFT AMERIC UPPER HOLDING QUADRANT 7873 FLATULENCE 04-28-2008 [facility] ERUCTATION PRIMARY AND GAS [facility] PAIN 7840 HEADACHE 04-24-2008 [facility] RADIOLOGY [facility] 840 SPRAINS AND 04-24-2008 [facility] CENTER AND UPPER ARM 4619 ACUTE 02-24-2008 [facility] SINUSITIS, PRIMARY UNSPECIFIED [facility]ARE[facility] 63224 ATROPHIC 12-09-2007 REBOLLEDO, GASTRITIS DEEPA G WITHOUT MENTION OF HEMORRHAGE 19090 PAIN IN 11-18-2007 [facility], [facility] [place] [facility] UNSPECIFIED Medications Na ND Rx Da Fi Fi Am Da Di Ph RX Ph St me C No te ll ll ou ys ag ar # ys at s nt no ma ic us Or Da si cy ia de te s n re d TE 00 04 04 2 90 15 NO 62 MC Ac RB .0 VA 36 CL ti UT 52 3- 3 00 38 EL ve AL 61 20 20 PH 6 LA IN 10 10 10 AR N E 1 MA RI JUNIOR CY CK LF EY AT A E 2. 5 MG TA B NE 37 09 03 [address] Ac [place] 00 -1 -2 .0 TI 54 EP ti OS 00 7 ZE 02 HE ve EC 45 20 20 NS NS 50 [address] SIMMONS C UG AD 20 Y .6 J MG [...] .0 TI 63 RE ti AM 60 ZE 69 ET ve IN 48 20 20 NS OP 41 [address] JAY JAY Menezes- UG C CO D #3 TA BL ET 59 03 03 0 [address] Ac 76 -2 -2 .0 TI 63 RE ti 21 ZE 68 ET ve 02 20 20 NS 10 [address] GOYAL UG C 59 02 02 00 40 10 CI 79 TA Ac 76 -1 -2 .0 TI 20 CK ti 21 6 00 ZE 80 ET ve 53 20 20 NS T 70 [address] RILEY UG E IN C NE 37 09 01 [address] Ac [place] 00 -1 -1 .0 TI 54 EP ti OS 00 ZE 02 HE ve EC 45 20 20 NS NS 50 [address] SIMMONS C UG AD 20 Y .6 IN J C MG TA BL ET TE 00 01 01 00 45 7 CI 78 CR Ac RC 59 -0 -1 .0 TI 78 UM ti ON 13 ZE 93 ve AZ 19 20 20 NS AA OL 68 [address] Menezes 0. UG W 4% IN CR C EA M 59 12 01 00 21 7 CI 78 WALSH Ac 76 -2 -1 .0 TI 66 TF ti 21 8 ZE 62 IE ve 02 20 20 NS LD [address] MCDERMOTT UG RA LI IN NE C NE 37 09 12 [address] Ac [place] 00 -1 -0 .0 TI 54 EP ti OS 00 3 ZE 02 HE ve EC 45 20 [...] IN A MG C TA BL ET NE 37 09 10 [address] Ac [place] 00 -1 -2 .0 TI 54 EP ti OS 00 7- 2- 00 ZE 02 HE ve EC 45 20 20 NS NS 50 [address] TROY GRANT AD 20 Y .6 IN J C MG TA BL ET PE 00 10 10 00 28 7 EC 72 TA Ac NI 78 -0 -2 .0 ON 96 CK ti CI 11 5- 2- 00 OM 67 ET ve LL 65 20 20 Y 7 T IN [address] CA 1 UG RL VK E CO 50 0 IN MG C TA BL ET FL 00 09 09 02 2. 2 CI 77 MC Ac UC 17 -0 -2 00 TI 37 ti ON 25 3- 4- 0 ZE 14 IR ve AZ 41 20 20 NS E OL 21 [address] David GRANT TO 0 M MG IN O C [...] IN J C MG TA BL ET [place] 50 09 09 00 1. 1 TH [...] 9 DR MCDERMOTT UG RA LI IN MD C 00 05 06 00 1. 1 CI 76 WALSH Ac 09 -2 -0 00 TI 33 TF ti 39 2- 4- 0 ZE 58 IE ve 10 20 20 NS LD [address] BALDEMAR GRANT RA LI IN [facility] NE 37 06 06 [address] Ac [place] 00 -2 -0 .0 TI 53 EP ti OS 00 6- 4- 00 ZE 57 HE ve EC 45 20 20 NS NS [address] TROY Pineda UG AD 20 Y .6 IN [facility] MG TA BL ET LO 60 09 05 03 30 30 CI 73 WALSH Ac RA 50 -0 -0 .0 TI 32 TF ti TA 50 8- 7- 00 ZE 00 IE ve DI 14 20 20 NS LD NE [address] MCDERMOTT 10 UG RA LI MG IN [facility] TA BL ET FL 00 04 [...] MCDERMOTT 10 UG RA LI MG IN MD C TA BL ET FL 00 12 01 00 2. 2 [...] MCDERMOTT UG RA LI IN NE C NE 00 12 01 00 30 30 CI 74 WALSH Ac XI 18 -2 -0 .0 TI 57 TF ti UM 65 2- 1- 00 ZE 96 IE ve [address] MCDERMOTT 40 UG RA LI MG IN NE C CA PS UL E YA 50 11 11 00 28 28 [...] 0 NS LD RA 20 [address] BALDEMAR SANON UG RA LI 10 IN NE C MG TA BL ET LO 60 09 10 01 30 30 CI 73 No Ac RA 50 -0 -2 .0 TI 32 t ti TA 50 8- 3- 00 ZE 00 Av ve DI 14 20 20 NS ai NE 70 [address] boston 10 UG e MG IN C TA BL ET NE 37 06 10 01 28 28 CI 72 No Ac [place] 00 -2 -2 .0 TI 53 t ti OS 00 6- 3- 00 ZE 57 Av ve EC 45 20 20 NS ai 50 [address] boston C UG e 20 .6 IN C MG TA BL ET 00 09 09 00 90 5 CI 73 No Ac 18 -0 -2 .0 TI 32 t ti 57 8- 6- 00 ZE 04 Av ve 32 20 20 NS ai 23 [address] boston UG e IN C 00 09 09 00 28 7 CI 73 No Ac 02 -0 -2 .0 TI 31 t ti 96 8- 6- 00 ZE 99 Av ve 09 20 20 NS ai [address] bl UG e IN C FL 00 09 [...] e MG IN C TA BL ET FL 60 09 09 [...] Comment ion Range Glucose 77 mg/dL 70-100 Bld-nc Results Labs Lab Lab Date Result Refere Interp Status Commen Order Detail nces retati t Range on CBC w auto diff (03-25-2017 15:40) Blood = 5.1 4.8-10. complet leukocy 017 K/MM3 8 ed maricruz 15:40 count (number /volume ) Automat = 12.8 11.5-17 complet ed 017 % .5 ed erythro 15:40 cyte distrib ution width Red = 4.12 4.2-5.4 complet blood 017 M/mm3 ed cell 15:40 count Blood = 266 142-424 complet platele 017 K/mm3 ed t count 15:40 Automat = 9.6 7.4-10. complet ed 017 fl 4 ed blood 15:40 platele t mean volume andrew [place] % = 6.4 % 1.7-9.3 complet 017 ed 15:40 Absolut = 0.3 0.1-1.0 complet e 017 K/mm3 ed monocyt 15:40 e count Automat = 89.3 82.2-97 complet ed 017 fl .8 ed erythro 15:40 cyte mean corpusc ular v Automat = 32.3 31.8-35 complet ed 017 g/dl .4 ed erythro 15:40 cyte mean corpusc ular h Blood = 36.8 37.0-47 complet hematoc 017 % .0 ed rit 15:40 (volume fractio n) Granulo = 51.9 37.0-80 complet cyte 017 % .0 ed percent 15:40 age Blood = 2.7 1.8-7.8 complet granulo 017 K/mm3 ed cytes 15:40 automat ed count (numb Automat = 3.6 % 0.1-12. complet ed 017 0 ed blood 15:40 eosinop hils/10 0 leukocy t Automat = 0.2 0.0-0.4 complet ed 017 K/mm3 ed blood 15:40 eosinop hil count Baso % = 1.1 % 0.1-2.0 complet 017 ed 15:40 Automat = 0.1 0-0.2 complet ed 017 K/MM3 ed blood 15:40 basophi l count (count/ vo Mean = 28.9 27-31.2 complet corpusc 017 pg ed ular 15:40 hemoglo bin (MCH) determ Lymphoc = 37.0 10-50.0 complet yte 017 % ed count, 15:40 blood, automat ed Absolut = 1.9 0.7-4.5 complet e 017 K/mm3 ed lymphoc 15:40 yte count Blood = 11.9 12.2-16 complet hemoglo 017 g/dL .2 ed bin 15:40 measure ment (mass/v olum Urinalysis macro (dipstick) panel in Urine (01-02-2017 [...] Procedures Procedure DOS Code Location Performer Comment EPIS[facility]OT[facility] [address] CENTER OTHER 7309 ANNA CALVERTICIA 0 [facility] Encounters Encounter Start End Date Code Location Performer Type Date [facility] [place] - 0 0 [facility] INPATIENT CENTER [facility] [place] - 0 0 [facility] OUTPATIEN [facility] [place] [facility] 0 0 [facility] [place] - 0 0 [facility] [place] - 9 9 MEDICAL OUTPATIEN C[facility] [place] - 9 9 MEDICAL OUTPATIEN [facility] [place] - 9 9 MEDICAL OUTPATIEN [facility] [place] - 9 9 MEDICAL OUTPATIEN C[facility] [place] - 9 9 MEDICAL OUTPATIEN CENTER [facility] [place] - 8 8 MEDICAL OUTPATIEN CENTER
--- OUTSIDE RECORDS SUMMARY | 2017-05-18 15:46 | External Medical Summary Rpt | CCD ---
Author Author , GONZALO SÁNCHEZ Address Unknown Phone [email or web address] Care Team Providers Care Special Effects Technician Name Role Phone [facility], Unavailable Unavailable [facility], Unavailable Unavailable [facility] REBOLLEDO, DEEPA G, Unavailable Unavailable REBOLLEDO, DEEPA G [facility], Unavailable Unavailable [facility] CHARBEL WYATT, Unavailable Unavailable CHARBEL WYATT DENNIS H, Unavailable Unavailable DOC AGUIRRE STEVEN M, Unavailable Unavailable [facility] Un[facility] Unavailable [facility] Unavailable Unavailable HOLDING, [facility] [employer], Unavailable Unavailable [facility] [employer] VIRGINIA MOISE, Unavailable Unavailable VIRGINIA MOISE, Unavailable Unavailable THOMAS KAPOOR, Unavailable Unavailable THOMAS ARNOLD TOM O, Unavailable Unavailable [facility] Unavailable Unavailable PHARMACY PATHOLOGY & CYTOLOGY Unavailable Unavailable LAB, PATHOLOGY & CYTOLOGY LAB [facility] OUTLET [facility]3, Unavailable Unavailable PHARMACY OUTLET [facility] Unavailable Unavailable [facility] Unavailable Unavailable [facility], Unavailable Unavailable PROFESSIONAL PHARM [...] & CYTOLOGY FOLLOW-UP LAB 650 NORMAL 11-23-2009 [facility] V141 PERSONAL 11-23-2009 [facility] OTHER ANTIBIOTIC AGENT V146 PERSONAL 11-23-2009 [facility] OF MEDICAL ALLERGY TO BADIN ANALGESIC AGENT V163 FAMILY 11-23-2009 [facility] HISTORY OF MEDICAL MALIGNANT CENTER NEOPLASM OF BREAST V1749 FAMILY 11-23-2009 [facility] HISTORY OF MEDICAL OTHER CENTER CARDIOVASCU LAR DISEASES V180 FAMILY 11-23-2009 [facility]ABETES [facility] MELLITUS V270 OUTCOME OF 11-23-2009 [facility], DELIVERY MARKUS O SINGLE LIVEBORN V221 SUPERVISION 11-22-2009 [facility] [place] OTHER MARKUS O NORMAL 63880 THREATENED 11-14-2009 [facility] PREMATURE MARKUS Ana LABOR ANTEPARTUM 14864 OTHER 11-14-2009 [facility], CENTER ANTEPARTUM 95308 ABNORM 11-14-2009 [facility] RATE/RHYTHM ANTPRTM COND/COMP V143 PERSONAL 11-14-2009 [facility] OT CENTER ANTI-INFECT CLAY AGT 22753 OTHER 10-26-2009 [facility] MALAISE AND THOMAS Oconnell FATIGUE 7850 UNSPECIFIED 10-26-2009 THOM[facility] ARNOLD TACHYCARDIA 7242 LUMBAGO 10-07-2009 [facility] 7910 PROTEINURIA 10-07-2009 MARKUS [facility] 5210 DENTAL 09-08-[address] STRE[address], CARIES LESLYE C 09049 08-12-2009 NAFISA ARNOLD AFFECT MANAGEMENT MOTH ANTEPARTUM 7241 PAIN IN 07-20-2009 [facility] SPINE 7243 SCIATICA 07-20-2009 [facility] 24310 SPASM OF 07-20-2009 [facility] MUSCLE [facility] 462 ACUTE 07-15-2009 [facility] PHARYNGITIS 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 18242 LUMP [place] 03-12-2009 [facility] IN [facility] V725 RADIOLOGICA 03-09-2009 ANNA RADIOLOGY [...] CYTOLOGY AL LAB EXAMINATION 2113 BENIGN 11-26-2008 [facility] 69045 URINARY 11-26-2008 [facility] 9222 CONTUSION 11-26-2008 [facility] EMERGENCY ABDOMINAL SERVICES [facility] 1274 ENTEROBIASI 11-06-2008 [facility] S [facility] 51144 ESOPHAGEAL 11-06-2008 [facility] REFLUX [facility] 3829 UNSPECIFIED 06-08-2008 [facility] OTITIS [facility]IA [facility] 21335 ABDOMINAL 06-08-2008 [facility] PAIN, PRIMARY EPIGASTRIC [facility]ARE[facility] 79614 ABDOMINAL 04-29-2008 LAB [facility] PAIN, LEFT AMERIC UPPER HOLDING QUADRANT 7873 FLATULENCE 04-28-2008 [facility] ERUCTATION PRIMARY AND GAS [facility]ARE[facility] PAIN 7840 HEADACHE 04-24-[address] [place] [address] [facility] 840 SPRAINS AND 04-24-2008 [facility] CENTER AND UPPER ARM 4619 ACUTE 02-24-2008 [facility] SINUSITIS, PRIMARY UNSPECIFIED CAREINC 43233 ATROPHIC 12-09-2007 REBOLLEDO, GASTRITIS DEEPA G WITHOUT MENTION OF HEMORRHAGE 78310 PAIN IN 11-18-2007 [facility] JOINT, SITE [...] A E 2. 5 MG TA B NV 37 09 03 5 28 28 CI [...] 1 DR RILEY UG E IN C NV 37 09 01 03 28 28 CI [...] MCDERMOTT UG RA LI IN NE C NV 37 09 12 02 [address] Ac [place] 00 -1 -0 .0 TI 54 EP ti OS 00 3 ZE 02 HE ve EC 45 20 20 NS NS 50 [address] TROY GRANT AD 20 Y .6 IN J C MG TA BL ET NI 00 11 11 00 28 7 NV 56 MC Ac TR 37 -1 -1 .0 OF 43 CL ti OF 81 3- 9- 00 ES 18 EL ve UR 70 20 20 SI LA AN 00 09 09 ON N TO 1 AL RI IN CK PH EY MC AR A R M 10 0 MG CA P NV 68 10 11 00 12 2 CI 78 MC Ac OM 38 -2 -0 .0 TI 03 CL ti ET 20 9- 5- 00 ZE 45 EL ve WALSH 04 20 20 NS LA ZI 10 09 [address] CORREA UG CK 25 EY IN A MG C TA BL ET NV 37 09 10 01 28 28 CI [...] MG IN O C TA BL ET NV 37 09 09 [address] Ac [place] 00 -1 -2 .0 TI 54 EP ti OS 00 7- 4- 00 ZE 02 HE ve EC 45 20 20 NS NS 50 [address] TROY GRANT AD 20 Y .6 IN J C MG TA BL ET MD 50 09 09 00 1. 1 TH [...] 9 DR MCDERMOTT UG RA LI IN DE C 00 05 06 00 1. 1 CI 76 WALSH Ac 09 -2 -0 00 TI 33 TF ti 39 2- 4- 0 ZE 58 IE ve 10 20 20 NS LD [address] BALDEMAR GRANT RA LI IN [facility] NV 37 06 06 [address] Ac [place] 00 -2 -0 .0 TI 53 EP ti OS 00 6- 4- 00 ZE 57 HE ve EC 45 20 20 NS NS 50 [address] TROY Pineda UG AD 20 Y .6 IN [facility] MG TA BL ET LO 60 09 05 03 30 30 CI 73 WALSH Ac RA 50 -0 -0 .0 TI 32 TF ti TA 50 8- 7- 00 ZE 00 IE ve DI 14 20 20 NS LD NE [address] MCDERMOTT 10 UG RA LI MG IN [facility] TA BL ET FL 00 04 [...] MCDERMOTT 10 UG RA LI MG IN DE C TA BL ET FL 00 12 [...] 0 NS LD RA 20 [address] BALDEMAR SANON UG RA LI [...] e MG IN C TA BL ET NV 37 06 10 01 28 28 CI [...] 08 [address] bl NV UG e OP IN 50 C MC [...] 0 MG IN C TA BL ET NV 37 06 07 00 28 28 CI [...] blood 15:40 platele t mean volume andrew [place] % = 6.4 % 1.7-9.3 complet 017 [...] DOS Code Location Performer Comment EPISIOTOM [address] CENTER OTHER 7309 ANNA CALVERTICIA 0 MEDICAL [facility] L [facility] C[facility] Encounters Encounter Start End Date Code Location Performer Type Date [facility] [place] - 0 0 MEDICAL INPATIENT CENTER [facility] [place] - 0 0 MEDICAL OUTPATIEN CENTER [facility] [place] [facility] 0 0 MEDICAL OUTPATIEN C[facility] [place] - 0 0 MEDICAL OUTPATIEN CENTER [facility] [place] - 9 9 MEDICAL OUTPATIEN CENTER [facility] [place] - 9 9 MEDICAL OUTPATIEN CENTER [facility] [place] - 9 9 MEDICAL OUTPATIEN CENTER [facility] [place] - 9 9 MEDICAL OUTPATIEN CENTER [facility] [place] - 9 9 MEDICAL OUTPATIEN CENTER [facility] [place] - 8 8 MEDICAL OUTPATIEN CENTER
--- OUTSIDE RECORDS SUMMARY | 2017-05-18 15:49 | External Medical Summary Rpt | CCD ---
Author Author , GONZALO Ozuna GONZALO Address Unknown Phone [email or web address] Care Team Providers Care Floor Finisher Name Role Phone [facility], Unavailable Unavailable [facility], Unavailable Unavailable [facility] REBOLLEDO, DEEPA G, Unavailable Unavailable REBOLLEDO, DEEPA G [facility], Unavailable Unavailable [facility] CHARBEL WYATT, Unavailable Unavailable CHARBEL WYATT DENNIS H, Unavailable Unavailable DOC AGUIRRE STEVEN M, Unavailable Unavailable [facility] Unavailable Unavailable [facility] Unavailable Unavailable HOLDING, [facility] [employer], Unavailable Unavailable [facility] [employer] VIRGINIA MOISE, Unavailable Unavailable VIRGINIA MOISE, Unavailable Unavailable THOMAS KAPOOR, Unavailable Unavailable THOMAS ARNOLD TOM O, Unavailable Unavailable [facility]US M[facility]AE [facility] Unavailable Unavailable PHARMACY PATHOLOGY & CYTOLOGY Unavailable Unavailable LAB, PATHOLOGY & CYTOLOGY LAB PHARMACY OUTLET #3, Unavailable Unavailable PHARMACY OUTLET #3 [facility] Unavailable Unavailable [facility] Unavailable Unavailable [facility], Unavailable Unavailable PROFESSIONAL PHARM PAWEL GEORGE, Unavailable Unavailable PAWEL GEORGE CHAD C, Unavailable Unavailable LESLYE MURDOCK JOHN M, Unavailable Unavailable [facility], [facility]ERA Unavailable Unavailable [facility] Purpose Continuity of Care Document - 11-18-2007 through 2016 Problems Code Diagnosis DOS Provider Status V2542 SURVEILLANC 02-09-2010 [facility] E PREV PRSC ALYX INTRAUTERN CNTRACPT DEVC V7240 02-07-2010 [facility] EXAMINATION ALYX /TEST UNCONFIRMED V251 ENCOUNTER 01-13-2010 SUNG ARNOLD/MIQUEL THOMAS Oconnell SANCHEZ IU CONTRACEPTI VE DEVICE V242 ROUTINE 01-06-2010 PATHOLOGY & CYTOLOGY FOLLOW-UP LAB 650 NORMAL 11-23-2009 [facility] V141 PERSONAL 11-23-2009 [facility] OTHER ANTIBIOTIC AGENT V146 PERSONAL 11-23-2009 [facility] HISTORY OF MEDICAL ALLERGY TO CENTER ANALGESIC AGENT V163 FAMILY 11-23-2009 [facility]ORY OF MEDICAL MALIGNANT CENTER NEOPLASM OF BREAST V1749 FAMILY 11-23-2009 [facility] OF MEDICAL OTHER CENTER CARDIOVASCU LAR DISEASES V180 FAMILY 11-23-2009 [facility]ORY OF MEDICAL DIABETES CENTER MELLITUS V270 OUTCOME OF 11-23-2009 [facility], DELIVERY MARKUS Perez SINGLE LIVEBORN V221 SUPERVISION 11-22-2009 [facility], OF OTHER MARKUS Ana NORMAL 05176 THREATENED 11-14-2009 [facility] PREMATURE MARKUS Perez LABOR ANTEPARTUM 84836 OTHER 11-14-2009 [facility] THREATENED [facility]ICAL LABOR, CENTER ANTEPARTUM 40935 ABNORM 11-14-2009 [facility] HE[facility] RATE/RHYTHM ANTPRTM COND/COMP V143 PERSONAL 11-14-2009 [facility] ALLERGY OT CENTER ANTI-INFECT CLAY AGT 93543 OTHER 10-26-2009 [facility] MALAISE AND THOMAS Oconnell FATIGUE 7850 UNSPECIFIED 10-26-2009 THOMAS ARNOLD TACHYCARDIA 7242 LUMBAGO 10-07-2009 MARKUS MCRAE 7910 PROTEINURIA 10-07-2009 MARK[facility] 5210 DENTAL 09-08-[address] ST[address], CARIES [place] C 70161 08-12-2009 NAFISA ARNOLD AFFECT MANAGEMENT MOTH ANTEPARTUM 7241 PAIN IN 07-20-2009 [facility] SPINE 7243 SCIATICA 07-20-2009 HANS [facility] 68159 SPASM OF 07-20-2009 [facility] MUSCLE [facility] [place] 462 ACUTE 07-15-2009 [facility] PHARYNGITIS [facility] 00211 OT CURRENT 07-15-2009 [facility] CLASSIFIABL CENTER E ELSW ANTPRTM V0179 [...] 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-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 33356 LUMP [place] 03-12-2009 [facility] MASS IN [facility] V725 RADIOLOGICA 03-09-2009 ANNA Salazar RADIOLOGY EXAMINATION PLL NEC V5869 LONG-TERM 03-08-2009 LAB [facility] (CURRENT) AMERIC USE OF HOLDING OTHER MEDICATIONS 4779 ALLERGIC 03-05-2009 [facility] RHINITIS PRIMARY CAUSE [facility]ARE[facility] UNSPECIFIED 6235 LEUKORRHEA 02-18-2009 [facility], NOT MARKUS O SPECIFIED INFECTIVE V016 CONTACT 02-18-2009 [facility], WITH OR MARKUS O EXPOSURE TO VENEREAL DISEASES V2502 GENERAL 02-16-2009 [facility], CNSL MARKUS O INITIATION OTH CONTRACEPT MEASURES V7231 ROUTINE 12-17-2008 PATHOLOGY & GYNECOLOGIC CYTOLOGY AL LAB EXAMINATION 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 [facility] [place] [place] 21987 URINARY 11-26-2008 [facility] 9222 CONTUSION 11-26-2008 [facility] EMERGENCY ABDOMINAL SERVICES [facility] 1274 ENTEROBIASI 11-06-2008 [facility] S [facility] 36851 ESOPHAGEAL 11-06-2008 [facility] REFLUX [facility] 3829 UNSPECIFIED 06-08-2008 [facility] OTITIS [facility]IA [facility] 40084 ABDOMINAL 06-08-2008 [facility] PAIN, PRIMARY EPIGASTRIC [facility]ARE[facility] 58059 ABDOMINAL 04-29-2008 [facility] PAIN, LEFT AMERIC UPPER HOLDING QUADRANT 7873 FLATULENCE 04-28-2008 [facility] ERUCTATION [facility]IMARY AND [facility]AS [facility]AREINC PAIN 7840 HEADACHE 04-24-[address] [facility] 840 SPRAINS AND 04-24-2008 [facility] STR[facility] C[facility] AND UPPER ARM 4619 ACUTE 02-24-2008 [facility] SINUSITIS, PRIMARY UNSPECIFIED CAREINC 92650 ATROPHIC 12-09-2007 REBOLLEDO, GASTRITIS DEEPA G WITHOUT MENTION OF HEMORRHAGE 24687 PAIN IN 11-18-2007 [facility] JO[facility], SITE [...] 90 15 NO 62 MC Ac RB -1 -1 .0 VA 36 CL ti UT 52 3- 3 00 38 EL ve AL 61 20 20 PH 6 LA IN 10 10 10 AR N E 1 MA RI JUNIOR CY CK LF EY AT A E 2. 5 MG TA B ME 37 09 03 5 28 28 CI [...] 1 DR RILEY UG E IN C ME 37 09 01 03 28 28 CI [...] -1 .0 TI 66 TF ti 21 ZE 62 IE ve 02 20 20 NS LD [address] BALDEMAR GRANT RA LI IN NE C ME 37 09 12 [address] Ac [place] 00 -1 -0 .0 TI 54 EP ti OS 00 7- 3- 00 ZE 02 HE ve EC 45 20 20 NS NS 50 [address] TROY GRANT AD 20 Y .6 IN J C MG TA BL ET NI 00 11 11 00 28 7 ME 56 MC Ac TR 37 -1 -1 .0 OF 43 CL ti OF 81 3- 9- 00 ES 18 EL ve UR 70 20 20 SI LA AN 00 09 09 ON N TO 1 AL RI IN CK PH EY MC AR A R M 10 0 MG CA P ME 68 10 11 00 12 2 CI 78 MC Ac OM 38 -2 -0 .0 TI 03 CL ti ET 20 9- 5- 00 ZE 45 EL ve WALSH 04 20 20 NS LA ZI 10 [address] CORREA UG CK 25 EY IN A MG C TA BL ET ME 37 09 10 01 28 28 CI [...] 0 IN MG C TA BL ET ME 37 09 09 00 28 28 CI [...] MG IN O C TA BL ET FL 00 09 09 00 2. 2 CI 77 MC Ac UC 17 -0 -1 00 TI 37 ti ON 25 3- 0- 0 ZE 14 IR ve AZ 41 20 20 NS E OL 21 [address] 15 UG TO 0 M MG IN O C TA BL ET IA 50 09 09 00 1. 1 TH [...] 9 DR BALDEMAR GRANT RA LI IN [facility] 00 05 06 00 1. 1 CI 76 WALSH Ac 09 -2 -0 00 TI 33 TF ti 39 2- 4- 0 ZE 58 IE ve 10 20 20 NS LD [address] BALDEMAR GRANT RA LI IN [facility] ME 37 06 06 [address] Ac [place] 00 -2 -0 .0 TI 53 EP ti OS 00 6- 4- 00 ZE 57 HE ve EC 45 20 20 NS NS [address] TROY Pineda UG AD 20 Y .6 IN [facility] MG TA BL ET LO 60 09 05 03 30 30 CI 73 WALSH Ac RA 50 -0 -0 .0 TI 32 TF ti TA 50 8- 7- 00 ZE 00 IE ve DI 14 20 20 NS LD NE [address] MCDERMOTT 10 UG RA LI MG IN [facility] TA BL ET FL 00 04 [...] MCDERMOTT 10 UG RA LI MG IN [facility] TA BL ET 00 12 01 00 28 7 CI 74 WALSH Ac 02 -2 -0 .0 TI 57 TF ti 96 2- 1- 00 ZE 97 IE ve 09 20 20 NS LD [address] BALDEMAR GRANT RA LI IN [facility] FL 00 12 01 00 2. 2 [...] 0 NS LD RA 20 [address] MCDERMOTT DE UG RA LI 10 IN NE C MG TA BL ET YA 50 11 11 00 28 28 CI 74 MC Ac Z 41 -0 -2 .0 TI 01 ti 28 90 3- 0- 00 ZE 76 IR ve 40 20 20 NS E TA 50 [address] CLAUDETTE UG TO M IN O C LO 60 09 10 01 30 30 CI 73 No Ac RA 50 -0 -2 .0 TI 32 t ti TA 50 8- 3- 00 ZE 00 Av ve DI 14 20 20 NS ai NE [address] mead 10 UG e MG IN C TA BL ET ME 37 06 10 01 28 28 CI [...] 21 08 [address] mead 15 UG e 0 MG IN C [...] [address] boston ME UG e OP IN 50 C MC G SP RA Y FL 00 08 08 00 1. 2 CI 72 No Ac UC 17 -0 -1 00 TI 99 t ti ON 25 8- 4- 0 ZE 10 Av ve AZ 41 20 20 NS ai OL 21 [address] boston 15 UG e 0 MG IN C TA BL ET ME 37 06 07 00 28 28 CI 72 No Ac IL 00 -2 -0 .0 TI 53 t ti OS 00 6- 3- 00 ZE 57 Av ve EC 45 20 20 NS ai 50 [address] boston C UG e 20 .6 IN C MG TA BL ET Procedures Procedure DOS Code Location Performer Comment EPISIOTOM 736 ANNA CASTILLO Y 0 [facility] CENTER OTHER 7309 ANNA CASTILLO ARTIFICIA 0 [facility] Encounters Encounter Start End Date Code Location Performer Type Date [facility] [place] - [facility] 0 MEDICAL INPATIENT CENTER [facility] [place] [facility] 0 0 MEDICAL OUTPATIEN CENTER [facility] [place] [facility] 0 MEDICAL [facility] [place] [facility] 0 MEDICAL [facility]PAT[facility]EN C[facility] [place] - 9 9 MEDICAL OUTPATIEN CENTER [facility] [place] 9 9 MEDICAL OUTPATIEN CENTER [facility] [place] 9 9 MEDICAL OUTPATIEN CENTER [facility] [place] 9 9 MEDICAL OUTPATIEN CENTER [facility] [place] - 9 9 MEDICAL OUTPATIEN CENTER [facility] [place] - 8 8 MEDICAL OUTPATIEN CENTER T
--- OUTSIDE RECORDS SUMMARY | 2017-05-18 15:49 | External Medical Summary Rpt | CCD ---
Author Author , GONZALO Ozuna GONZALO Address Unknown Phone [email or web address] Care Team Providers Care Training Development Manager Name Role Phone [facility], [facility]available Unavailable [facility], Unavailable Unavailable [facility] REBOLLEDO, DEEPA G, Unavailable Unavailable REBOLLEDO, DEEPA G [facility], Unavailable Unavailable [facility] CHARBEL WYATT, Unavailable Unavailable CHARBEL WYATT DENNIS H, Unavailable Unavailable DOC AGUIRRE STEVEN M, Unavailable Unavailable [facility] Unavailable Unavailable [facility] Unavailable Unavailable 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, [facility] [employer], Unavailable Unavailable [facility] [employer] VIRGINIA MOISE, Unavailable Unavailable VIRGINIA MOISE, Unavailable Unavailable THOMAS KAPOOR, Unavailable Unavailable THOMAS ARNOLD TOM O, Unavailable Unavailable MARKUS MCRAE [facility] Unavailable Unavailable PHARMACY PATHOLOGY & CYTOLOGY Unavailable Unavailable LAB, PATHOLOGY & CYTOLOGY LAB PHARMACY OUTLET #3, Unavailable Unavailable PHARMACY OUTLET #3 [facility] Unavailable Unavailable [facility] Unavailable Unavailable [facility], Unavailable Unavailable PROFESSIONAL PHARM PAWEL [...] & CYTOLOGY FOLLOW-UP LAB 650 NORMAL 11-23-2009 [facility] V141 PERSONAL 11-23-2009 [facility] OTHER ANTIBIOTIC AGENT V146 PERSONAL 11-23-2009 [facility] HISTORY OF MEDICAL ALLERGY TO CENTER ANALGESIC AGENT V163 FAMILY 11-23-2009 [facility] H[facility] OF MEDICAL MALIGNANT CENTER NEOPLASM OF BREAST V1749 FAMILY 11-23-2009 [facility]ORY OF MEDICAL OTHER CENTER CARDIOVASCU LAR DISEASES V180 FAMILY 11-23-2009 [facility] OF MEDICAL DIABETES CENTER MELLITUS V270 OUTCOME OF 11-23-2009 [facility], DELIVERY MARKUS Perez SINGLE LIVEBORN V221 SUPERVISION 11-22-2009 [facility], OF OTHER MARKUS Ana NORMAL 06375 THREATENED 11-14-2009 [facility] PREMATURE MARKUS Perez LABOR ANTEPARTUM 83446 OTHER 11-14-2009 [facility] THREATENED [facility]ICAL LABOR, CENTER ANTEPARTUM 60368 ABNORM 11-14-2009 [facility] HEART [facility] RATE/RHYTHM ANTPRTM COND/COMP V143 PERSONAL 11-14-2009 [facility] HISTORY MEDICAL ALLERGY OT CENTER ANTI-INFECT CLAY AGT 28059 OTHER 10-26-2009 [facility] MALAISE AND THOMAS Oconnell FATIGUE 7850 UNSPECIFIED 10-26-2009 [facility] ARNOLD TACHYCARDIA 7242 LUMBAGO 10-07-2009 [facility] 7910 PROTEINURIA 10-07-2009 [facility] 5210 DENTAL 09-08-2009 STRE[address], CARIES LESLYE C 24444 08-12-2009 NAFISA ARNOLD AFFECT MANAGEMENT MOTH ANTEPARTUM 7241 PAIN IN 07-20-2009 [facility] SPINE 7243 SCIATICA 07-20-2009 HANS [facility] 80964 SPASM OF 07-20-2009 [facility] MUSCLE [facility] 462 ACUTE 07-15-2009 [facility] PHARYNGITIS [facility] 83937 OT CURRENT 07-15-2009 [facility] CLASSIF[facility] C[facility] E ELSW ANTPRTM V0179 [...] 03-12-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 93167 LUMP [place] 03-12-2009 [facility] MASS IN [facility] V725 RADIOLOGICA 03-09-2009 ANNA Salazar [...] CYTOLOGY AL LAB EXAMINATION 2113 BENIGN 11-26-2008 [facility] NEOPLASM [facility] [place] 73585 URINARY 11-26-2008 [facility] 9222 CONTUSION 11-26-2008 [facility] EMERGENCY ABDOMINAL SERVICES [facility] 1274 ENTEROBIASI 11-06-2008 [facility] 28884 ESOPHAGEAL 11-06-2008 [facility] REFLUX [facility] 3829 UNSPECIFIED 06-08-2008 [facility] OTITIS [facility] 21816 ABDOMINAL 06-08-2008 [facility] PAIN, PRIMARY EPIGASTRIC CAREINC 04193 ABDOMINAL 04-29-2008 [facility] PAIN, LEFT AMERIC UPPER HOLDING QUADRANT 7873 FLATULENCE 04-28-2008 [facility] ERUCTATION [facility]ARE[facility] PAIN 7840 HEADACHE 04-24-2008 [facility] RADIOLOGY [facility] 840 SPRAINS AND 04-24-2008 [facility] STR[facility] CENTER AND UPPER ARM 4619 ACUTE 02-24-2008 [facility] SINUSITIS, PRIMARY UNSPECIFIED CAREINC 94841 ATROPHIC 12-09-2007 REBOLLEDO, GASTRITIS DEEPA G WITHOUT MENTION OF HEMORRHAGE 13809 PAIN IN 11-18-2007 [facility], SITE [...] IN A MG C TA BL ET MD 37 [...] C TA BL ET MD 37 09 09 [...] MG IN O C TA BL ET DC 50 09 09 00 1. 1 TH [...] 9 DR BALDEMAR GRANT RA LI IN [facility] 00 05 06 00 1. 1 CI 76 WALSH Ac 09 -2 -0 00 TI 33 TF ti 39 2- 4- 0 ZE 58 IE ve 10 20 20 NS LD [address] BALDEMAR GRANT RA LI IN [facility] MD 37 06 06 02 [address] Ac [place] 00 -2 -0 .0 TI 53 EP ti OS 00 6- 4- 00 ZE 57 HE ve EC 45 20 20 NS NS [address] TROY Pineda UG AD 20 Y .6 IN [facility] MG TA BL ET LO 60 09 05 03 30 30 CI 73 WALSH Ac RA 50 -0 -0 .0 TI 32 TF ti TA 50 8- 7- 00 ZE 00 IE ve DI 14 20 20 NS LD NE [address] MCDERMOTT 10 UG RA LI MG IN [facility] TA BL ET FL 00 [...] MCDERMOTT 10 UG RA LI MG IN [facility] TA BL ET 00 12 01 00 28 7 CI 74 WALSH Ac 02 -2 -0 .0 TI 57 TF ti 96 2- 1- 00 ZE 97 IE ve 09 20 20 NS LD [address] BALDEMAR GRANT RA LI IN [facility] FL 00 12 01 00 2. 2 [...] 0 NS LD RA [address] MCDERMOTT DE UG RA LI [...] Comment EPISIOTOM 736 ANNA CASTILLO Y 0 [facility] CENTER OTHER 7309 ANNA CASTILLO ARTIFICIA 0 [facility] L RUPTURE C[facility] Encounters Encounter Start End Date Code Location Performer Type Date [facility] [place] - 0 0 [facility] INPATIENT CENTER [facility] [place] - 0 0 [facility] OUTPATI[facility] [place] 0 0 [facility] [place] [facility] 0 0 [facility] [place] [facility] 9 9 [facility] [place] [facility] 9 9 [facility] [place] [facility] 9 9 [facility] [place] [facility] 9 9 [facility] [place] - 9 9 [facility] [place] - 8 8 MED[facility] OUTPATIEN CENTER T
--- OUTSIDE RECORDS SUMMARY | 2017-05-18 15:50 | External Medical Summary Rpt ---
Author Author [employer], [employer] Organization [employer] Address Unknown Phone Unavailable Results CBC W Auto Differential panel in Blood Observa Value Referen Units Interpr Notes Date tion ce etation Range Basophils 0 - 0.2 K/MM3 Normal No Mar 25 informati 2016 3:40 [#/volume on in PM ] in source Blood by data Automated count Basophils 0.1 - 2.0 % Normal No Mar 25 informati 2016 3:40 leukocyte on in PM s in source Blood by data Automated count Eosinophi 0.0 - 0.4 K/mm3 Normal No Mar 25 ls informati 2016 3:40 [#/volume on in PM ] in source Blood by data Automated count Eosinophi 0.1 - % Normal No Mar 25 ls/100 12.0 informati 2016 3:40 leukocyte on in PM s in source Blood by data Automated count Granulocy 1.8 - 7.8 K/mm3 Normal No Mar 25 maricruz informati 2016 3:40 [#/volume on in PM ] in source Blood by data Automated count Granulocy 37.0 - % Normal No Mar 25 maricruz/100 80.0 informati 2016 3:40 leukocyte on in PM s in source Blood by data Automated count Hematocri 37.0 - % Low No Mar 25 t [Volume 47.0 informati 2016 3:40 on in PM Fraction] source of Blood data Hemoglobi 12.2 - g/dL Low No Mar 25 n 16.2 informati 2016 3:40 [Mass/vol on in PM ume] in source Blood data Lymphocyt 0.7 - 4.5 K/mm3 Normal No Mar 25 es informati 2016 3:40 [#/volume on in PM ] in source Unspecifi data ed specimen by Automated count Lymphocyt 10 - 50.0 % Normal No Mar 25 es informati 2016 3:40 [#/volume on in PM ] in source Unspecifi data ed specimen by Automated count Erythrocy 27 - 31.2 pg Normal No Mar 25 te mean informati 2016 3:40 corpuscul on in PM ar source hemoglobi data n [Entitic mass] Erythrocy 31.8 - g/dl Normal No Mar 25 te mean 35.4 informati 2016 3:40 corpuscul on in PM ar source hemoglobi data n concentra tion [Mass/vol ume] by Automated count Erythrocy 82.2 - fl Normal No Mar 8 te mean 97.8 informati 2016 3:40 corpuscul on in PM ar volume source [Entitic data volume] by Automated count Monocytes 0.1 - 1.0 K/mm3 Normal No Mar 8 informati 2016 3:40 [#/volume on in PM ] in source Blood by data Automated count Monocytes 1.7 - 9.3 % Normal No Mar 25 /100 informati 2016 3:40 leukocyte on in PM s in source Blood by data Automated count Platelet 7.4 - fl Normal No Mar 25 mean 10.4 informati 2016 3:40 volume on in PM [Entitic source volume] data in Blood by Automated count Platelets 142 - 424 K/mm3 Normal No Mar 8 informati 2016 3:40 [#/volume on in PM ] in source Blood data Erythrocy 4.2 - 5.4 M/mm3 Low No Mar 8 maricruz informati 2016 3:40 [#/volume on in PM ] in source Amniotic data fluid Erythrocy 11.5 - % Normal No Mar 25 te 17.5 informati 2016 3:40 distribut on in PM ion width source [Entitic data volume] by Automated count Leukocyte 4.8 - K/MM3 Normal No Mar 8 s 10.8 informati 2016 3:40 [#/volume on in PM ] in source Blood data Urinalysis macro (dipstick) panel in Urine Observa Value Referen Units Interpr Notes Date tion ce etation Range Appeara Clear CLEAR No No No Jan 02 nce of informa informa informa 2016 Urine tion in tion in tion in [...] No Jan 02 gravity 1.030 informati informati 2016 of Urine on in on in 10:31 AM source source data data Leukocy NEGATIV NEG No No No Jan 02 te E informa informa informa 2017 esteras tion in tion in ti in 10:31 e source source source AM [...] WITH AND WITHOUT IV CONTRAS T DATED 11/25/ 015\.br \\.br\M RI evaluat ion of the [...] t.\.br\ \.br\ END OF REPORT* *\.br\\ .br\Jody kevan Levy M.D.\.b r\\.br\ Dictate d: 11/26/19 7:35 PM\.br\ \.br\Tr anscrib ed: 11/26/19 15 7:41 PM\.br\ \.br\ * Final Report \.br \\.br\D ictated : ANTIONE LEVY M.D. 7:35 pm\.br\ \.br\Tr anscrib ed by: 7:42 pm\.br\ \.br\Au thentic ated by: ANTIONE LEVY M.D. 9:38 am\.br\ \.br\ IMMUNOELECTROPHORESIS, SERUM Observa Value Referen Units Interpr Notes Date tion ce etation Range FAX [phone] IMMUNOE SEE No No No Immunog November [...] Date tion ce etation Range FAX [phone] Nuclear SEE No No No Antinuc November 05 Ab BELOW informa informa informa lear 2015 [Titer] tion in tion in tion in [...] 05 a BELOW informa informa informa IgG/IgM 2014 burgdor tion in tion in tion in Ab 1:50 PM feri source source source IgG+IgM data data data Ab <0.91 [Units/ volume] 0.00-0. in 90 Serum ISR CBNegat mark <0.91Eq uivocal 0.91 - 1.09Pos itive >1.09 HEMOGLOBIN A1C Observa Value Referen Units Interpr Notes Date ti ce etation Range FAX [phone] Hemoglo 5.10 No % No NON November 05 bin informa informa DIABETI 2015 A1c/Hem tion in tion in C 1:50 PM oglobin source source .total data data in 3.0-6.0 Blood %CONTRO LLED DIABETI C 6.0-9.0 %POORLY CONTROL LED DIABETI C >9.0%Hg bA1c is a FDA approve d test for monitor ing fdc glucose control in individ uals with diabete [...] 05 oid E E informa informa informa 2014 arthrit tion in tion in tion in [...] 05 (REFLEX BELOW informa informa informa d 2015 IF tion in tion in tion in [...] ------- ------- ------- ------- -Speckl ed Sm, POOL CLEANER, SCL-70, SLE,MCT D,Scler oderma, Sjogren sSS-A/S S-B---- ------- ------- ------- -- ------- ------- ------- ------- -Nucleo lar SCL-70, PM-1/SC L High titers Sclerod garrison Poly-my ositis/ Sclerod garrison Overlap ------- ---- ------- ------- -- ------- ------- ------- ------- -Centro mere Centrom ere PSS w/Crest syndrom e variabl e------ ----- ------- ------- -- ------- ------- ------- ------- --Perfo rmed at: [facility] [address], [place], [place], [id number] Adonay burgos, PhD, Phone: [phone]
--- OUTSIDE RECORDS SUMMARY | 2017-05-18 15:50 | External Medical Summary Rpt | CCD ---
Demographics Preferred Language Kyrgyz Marital Status Unknown Jewish Affiliation Unknown Race Unknown Ethnic Group Unknown Author Author , GONZALO SÁNCHEZ Address Unknown Phone Immunization No patient found.
--- OUTSIDE RECORDS SUMMARY | 2017-05-18 15:50 | External Medical Summary Rpt ---
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
--- OUTSIDE RECORDS SUMMARY | 2017-05-18 15:50 | External Medical Summary Rpt | CCD ---
Demographics Preferred Language Spanish Marital Status Unknown Congregational Affiliation Unknown Race Unknown Ethnic Group Unknown Author Author , GONZALO ÁSNCHEZ Address Unknown Phone Immunization No patient found.
[2017-05-18] MEDS ORDERED: BACTROBAN2% TP (16:49)
[2017-05-18] MEDS ORDERED: BACTRIM DS 8001 TA1 PO (16:49)
--- NOTE | 2017-05-18 16:49 | Urgent Treatment Center Report ---
See Addendum History of Present Issue Date/Time Seen by Provider 05/18/17 1633 Visit Reason Pt arrived:Walked Presenting Problem:PT IS C/O POSSIBLE SPIDER BITE ON LEFT LEG. Location if Accident: Onset of symptoms date/time:/ or onset unknown for:MEDICAL HX UNKNOWN Have you (or family members/close friends) recently traveled outside the [place]? N If Yes, where/when: Have you had exposure to infectious disease within the past month? TB? Other? Specify: Patient states that she noticed a small round red area with white head on her left upper leg just below her buttock State that she scratched the area and alot of puss ran from the area State that she knew she probably needed antibiotic so she came in to get checked and see if she needed something to help dry it up ALLERGIES Coded Allergies: levofloxacin (From [employer]) (01/02/17) History Medical History General CAD? No Angina: No ME: No Hypertension? No Hyperlipidemia? No CHF? No DVT? No PE? No COPD? No Asthma? No Anemia? No GERD? No Gastric ulcers? No GI Bleed? No Hernia? No Thyroid Problems? No Hypothyroidism? No CVA? No Seizures? No Diabetes? No Renal Insuffiency? No UTI? No Stones? No BPH? No GB Disease: Yes Nephritic Syndrome? No Asplenia? No Hepatitis? No Sickle Cell Disease? No Arthritis? No Migraines? No Cataracts? No Glaucoma? No MRSA? No HIV? No TB? No Anxiety? No Depression? No Cancer? No More? No Immunization HX DT/Tetanus Unknown Flu Refused Pneumonia Never Had Surgical Hx Previous Surgery?Y REMOVAL OF COLON POLYPS T&A SEPTOPLASTY/TURB REDUCTIO REMOVAL LUMP LEFT BREAST GALLBLADDER Family History Family HX Diabetes No CAD No Hypertension No Hyperlipidemia No Cancer Yes TB No Social History Smoking Hx Smoker: Never Smoker Tobacco: No Alcohol Alcohol: No Review of Systems All Other Systems Reviewed and Negative Skin lesions Physical Exam Vital Signs Vital Signs Date Time Temp Pulse Resp B/P Pulse O2 O2 Flow FiO2 Ox Delivery Rate 05/18 1612 99.0 88 20 132/78 98 General Appearance normal appearance, WD/WN, no apparent distress Respiratory Status Yes: trachea midline, chest symmetrical, non tender chest. No: respiratory distress. Cardiovascular normal exam, regular rate/rhythm, no peripheral edema Neurologic alert, normal exam, oriented x 3 Skin small 3x2 area on upper leg open and drainage noted, culture obtained and sent to lab no warmth area marked and patient educated on how to monitor area for worsening of symptoms Medical Decision Making LABS/Meds/Orders Pt receiving controlled substance in ED? No Departure Departure Time of Disposition 164 Disposition DC Home or Self Care(routine) Clinical Impression Primary Impression: Abscess Condition STABLE Referrals Tahir NAVARRO,Frantz STORY MD,FABRIZIO Muhammad Patient Instructions Boil, DI for Boils Additional Instructions *Start antibiotic(s) immediately and be sure to take as ordered for the FULL length of time although you may be feeling better or start to see improvement in the next 24-48 hours *Monitor closely. Outlined redness so that you can monitor easier. Follow up immediately for new or worsening symptoms including but not limited to redness, swelling, streaking from site fever or chills. *Warm compress 15 minutes 3-4 times day *Never squeeze or pop these on your own. Seek immediate medical attention next time this occurs *Monitor Temp. Tylenol every 4 hours as needed and ibuprofen every 6 hours as needed (as long as your primary care doctor has told you that it is ok to take both. For fever, aches, pain. ER if no less that 101 despite Tylenol and ibuprofen Discharge Counseling Counseled pt/family regarding diagnosis, test results, medications/RX, home care, follow up needs Prescriptions Current Visit Scripts SULFAMETHOXAZOLE W/TRIMETHOPRI (Bactrim Ds Tab) 1 TABLET PO BID #20 TAB MUPIROCIN 2% (Bactroban Oint) 1 SERGEY TP BID #1 TUBE at 165
[2017-05-18 16:51] VITALS: BP 132/78
[2017-06-04] MEDS ORDERED: AZELASTINE137 MCG/Ac (03:45)
== END 2017-05-18 16:52 | disposition home or self-care (01) ==
LOC: UTC 15:40
DX: L02.416 Cutaneous abscess of left lower limb (principal)